=== PATIENT | male | born 1995 ===

== ENCOUNTER 2017-12-28 18:07 | Emergency (ER) | payer MEDICAID ==
[2017-12-28 18:08] VITALS: BMI 22.7
[2017-12-28 18:15] VITALS: TEMP 97.9
[2017-12-28] MEDS ORDERED: Sodium Chloride 0.9% 1,000 ML IV STA (18:48)
[2017-12-28] MEDS ORDERED: DiphenhydrAMINE 50 mg/ml Inj IVP STA (18:48)
[2017-12-28] MEDS ORDERED: DiphenhydrAMINE 50 mg/ml Inj ONE (19:00)
--- NOTE | 2017-12-28 19:06 | ED PDOC ---
HPI: Abdomen Time Seen by Provider: 12/28/17 18:31 Chief Complaint (Nursing): Abdominal Pain Chief Complaint (Provider): Abdominal Pain History Per: Patient History/Exam Limitations: no limitations Onset/Duration Of Symptoms: Hrs (x 8) Current Symptoms Are (Timing): Still Present Location Of Pain/Discomfort: Diffuse Quality Of Discomfort: "Pain" Associated Symptoms: Vomiting, Diarrhea Additional Complaint(s): 22 year old male presents to the ED complaining of vomiting and abdominal pain since 11 this morning upon waking. When he awoke, he was unable to eat and drink. Pain is diffuse. Vomiting is non bloody,non bilious and intractable. He also reports few episodes of non bloody diarrhea. Patient had had similar episodes multiple times in the last three months. He has been seen at [facility] and [facility] Ed multiple times. Patient reports he was seen and treated at [facility] earlier today. Despite instructions, patient has not followed up with clinic or community aide. PMD: none provided Past Medical History Reviewed: Historical Data, Nursing Documentation, Vital Signs Vital Signs: Last Vital Signs Temp 97.9 F 12/28/17 18:12 Pulse 73 12/28/17 21:58 Resp 18 12/28/17 21:58 BP 132/87 12/28/17 21:58 Pulse Ox 98 12/28/17 21:58 - Medical History PMH: Gastritis - Surgical History Surgical History: Appendectomy - Family History Family History: States: Unknown Family Hx - Social History Current smoker - smoking cessation education provided: Yes (Heavy Smoker > 10 a day ) Drugs: Cannabis - Immunization History Hx Tetanus Toxoid Vaccination: Yes Hx Influenza Vaccination: No Hx Pneumococcal Vaccination: No - Home Medications Home Medications: Ambulatory Orders Medication Instructions Recorded Ciprofloxacin [Cipro] 1 tab PO BID #14 tab 12/28/17 Dicyclomine [Bentyl] 20 mg PO BID PRN #30 tab 12/28/17 Ketorolac Tromethamine [Toradol] 10 mg PO Q8 PRN #30 tab 12/28/17 Ondansetron ODT [Zofran ODT] 1 odt PO Q6 PRN #20 odt 12/28/17 - Allergies Allergies/Adverse Reactions: Allergies Allergy/AdvReac Type Severity Reaction Status Date / Time SEAFOOD Allergy RASH Uncoded 12/28/17 18:12 Review of Systems ROS Statement: Except As Marked, All Systems Reviewed And Found Negative Gastrointestinal: Positive for: Vomiting, Abdominal Pain Physical Exam - Reviewed Nursing Documentation Reviewed: Yes Vital Signs Reviewed: Yes - Physical Exam Appears: Positive for: Uncomfortable (crying in pain) Head Exam: Positive for: ATRAUMATIC, NORMOCEPHALIC Skin: Positive for: Warm, Dry Eye Exam: Positive for: EOMI, PERRL ENT: Positive for: Other (dry mucus membranes). Negative for: Pharyngeal Erythema, Tonsillar Exudate Neck: Positive for: Painless ROM, Supple Cardiovascular/Chest: Positive for: Regular Rate, Rhythm. Negative for: Murmur Respiratory: Positive for: Normal Breath Sounds. Negative for: Respiratory Distress Gastrointestinal/Abdominal: Positive for: Soft, Tenderness (distractible tenderness to palpation diffusely). Negative for: Mass, Distended, Guarding, Rebound Back: Positive for: Normal Inspection. Negative for: Decreased ROM Extremity: Positive for: Normal ROM. Negative for: Deformity Lymphatic: Negative for: Adenopathy Neurologic/Psych: Positive for: Alert, Mood/Affect (anxious affect). Negative for: Motor/Sensory Deficits - Laboratory Results Result Diagrams: 12/28/17 19:29 12/28/17 19:29 - ECG O2 Sat by Pulse Oximetry: 99 (RA) Pulse Ox Interpretation: Normal Medical Decision Making Medical Decision Making: Time: 18:46 Impression: acute on chronic abdominal pain with history of marijuana use. Differential diagnoses include but are not limited to: gastroenteritis, gastroparesis, adverse reaction to marijuana, dehydration, electrolyte abnormality Initial Plan: --CMP --Urine drug --Lactic acid plasma --Lipase --Magnesium --Phosphorus --Urine dip --CBC with differentials --PTT --Prothrombin time --Benadryl 25 mg IVP --Dextrose IV 100 mls/hr --Normal saline IV 1,000 mls/hr --Phenergan 25 mg IVPB --Reglan 10 mg IV --Toradol 15 mg IVP --CT abdomen/ pelvis Reviewed previous charts- patient was seen and signed out AMA twice after one admission. CT scan in October was unremarkable. 2100 Labs demonstrate leukocytosis, similar to previous visits. Time: 21:33 CT Abdomen/ Pelvis FINDINGS: Limitations: Streak artifact - mild. Lung bases: No acute findings. ABDOMEN: Liver: Fatty infiltration. Gallbladder and bile ducts: No calcified stones. No ductal dilation. Pancreas: No ductal dilation. No mass. Spleen: No splenomegaly. Adrenals: No mass. Kidneys and ureters: No mass. No hydronephrosis. Stomach and bowel: Mild mural thickening vs underdistention of large bowel. No associated inflammatory stranding. No obstruction. PELVIS: Appendix: Appendectomy. Bladder: Unremarkable. Reproductive: Unremarkable as visualized. ABDOMEN and PELVIS: Intraperitoneal space: No significant fluid collection. No free air. Bones/joints: No acute fracture. Soft tissues: Unremarkable. Vasculature: Unremarkable. No aneurysm. Lymph nodes: No pathologically enlarged lymph nodes. IMPRESSION: 1. Mild colitis versus underdistention. Clinical correlation is needed. 2. Incidental/non-acute findings are described above. Discussed with patient findings. Currently requesting Toradol and something "to put me to sleep." Advised that his condition does not require sleep medication, and that substance abuse probably contributing significant to his symptoms. Will be d/c with Cipro, Toradol, Bentyl and Zofran. Return to the ED if symptoms persist or worsen. Emphasized need for follow up. Scribe Attestation: Documented by Neelima Adkins, acting as a scribe for Ibeth Cope MD Provider Scribe Attestation: All medical record entries made by the Scribe were at my direction and personally dictated by me. I have reviewed the chart and agree that the record accurately reflects my personal performance of the history, physical exam, medical decision making, and the department course for this patient. I have also personally directed, reviewed, and agree with the discharge instructions and disposition. Disposition - Clinical Impression Clinical Impression: Gastroenteritis, Colitis, Substance abuse - Patient ED Disposition Is Patient to be Admitted: No Counseled Patient/Family Regarding: Studies Performed, Diagnosis, Need For Followup, Rx Given - Disposition Referrals: [facility] [Outside] - 12/29/17 (START FOLLOWING UP AT CLINIC FOR FURTHER EVALUATION. YOU NEED TO BE SEEN BY A TRAVEL FREIGHT AND PASSENGER AGENT.) Disposition: Routine/Home Disposition Time: 21:45 Condition: IMPROVED Prescriptions: Ciprofloxacin [Cipro] 1 tab PO BID #14 tab Dicyclomine [Bentyl] 20 mg PO BID PRN #30 tab PRN Reason: abdominal pain Ketorolac Tromethamine [Toradol] 10 mg PO Q8 PRN #30 tab PRN Reason: PAIN Ondansetron ODT [Zofran ODT] 1 odt PO Q6 PRN #20 odt PRN Reason: Nausea/Vomiting Instructions: Drug Abuse and Drug Addiction (DC), Gastroenteritis (ED) Forms: [employer] (Bengali)
[2017-12-28 19:18] LABS: OPIATES, UR NEGATIVE (NEGATIVE)
[2017-12-28 19:21] LABS: BARBITURATES, UR NEGATIVE (NEGATIVE); BENZODIAZEPINES, UR NEGATIVE (NEGATIVE); PHENCYCLIDINE, UR NEGATIVE (NEGATIVE)
[2017-12-28 19:35] LABS: BASO % 0.2 % (0.0-2.0); HEMOGLOBIN 15.1 g/dL (12.0-18.0); LYMPH # 1.1 K/uL (1.0-4.3); LYMPH % 5.5 % (20.0-40.0); MEAN CELL VOLUME 93.2 fl (80.0-94.0); MEAN CORPUSCULAR HEMOGLOBIN 31.6 pg (27.0-31.0); MEAN CORPUSCULAR HGB CONC 33.9 g/dL (33.0-37.0); MEAN PLATELET VOLUME 7.8 fl (7.2-11.7); MONO # 0.7 K/uL (0.0-0.8); MONO % 3.7 % (0.0-10.0); NEUT # 17.9 K/uL (1.8-7.0); NEUT % 90.6 % (50.0-75.0); PLATELET COUNT 314 K/uL (130-400); RBC 4.77 Mil/uL (4.40-5.90); RED CELL DISTRIBUTION WIDTH 13.5 % (11.5-14.5); WHITE BLOOD COUNT 19.8 K/uL (4.8-10.8)
[2017-12-28 19:44] LABS: ALB/GLOB RATIO 1.5 (1.0-2.1); ALBUMIN 4.4 g/dL (3.5-5.0); ALT/SGPT 40 U/L (21-72); AST/SGOT 35 U/L (17-59); BLOOD UREA NITROGEN 11 mg/dl (9-20); CALCIUM 9.1 mg/dL (8.4-10.2); GFR AFRICAN-AMERICAN > 60; GFR NON-AFRICAN AMERICAN > 60; LIPASE 34 U/L (23-300)
[2017-12-28 19:49] LABS: INR 1.1 (0.9-1.2); PARTIAL THROMBOPLASTIN TIME 29.4 Seconds (25.6-37.1)
[2017-12-28] MEDS ORDERED: Sodium Chloride 0.9% 100 ML ONE (20:19)
[2017-12-28] MEDS ORDERED: Iohexol 300 100 ML IJ ONE (20:19)
[2017-12-28 20:47] LABS: LYMPHOCYTE 2 % (20-50); MONOCYTE 1 % (0-10); NEUTROPHIL 94 % (42-75); REACTIVE LYMPHOCYTES 3 % (0-0); TOTAL CELLS COUNTED 100
[2017-12-28 20:48] LABS: PLATELET CLUMPS PRESENT; PLATELET ESTIMATE NORMAL (NORMAL)
--- NOTE | 2017-12-28 21:33 | CT ---
EXAM: CT Abdomen and Pelvis With Intravenous Contrast CLINICAL HISTORY: 22 years old, male; Pain and signs and symptoms; Vomiting; Abdominal pain; Generalized; Prior surgery; Surgery date: 6+ months; Surgery type: Appendectomy; Patient HX: Gastritis; Additional info: Abd pain leukocytosis TECHNIQUE: Axial computed tomography images of the abdomen and pelvis with intravenous contrast. All CT scans at this facility use one or more dose reduction techniques, viz.: automated exposure control; ma/kV adjustment per patient size (including targeted exams where dose is matched to indication; i.e. head); or iterative reconstruction technique. Coronal and sagittal reformatted images were created and reviewed. CONTRAST: 90 mL of [id number] administered intravenously. COMPARISON: CT - ABDOMEN^ABD ROUTINE W (ADULT) 2011-04-05 04:27 FINDINGS: Limitations: Streak artifact - mild. Lung bases: No acute findings. ABDOMEN: Liver: Fatty infiltration. Gallbladder and bile ducts: No calcified stones. No ductal dilation. Pancreas: No ductal dilation. No mass. Spleen: No splenomegaly. Adrenals: No mass. Kidneys and ureters: No mass. No hydronephrosis. Stomach and bowel: Mild mural thickening vs underdistention of large bowel. No associated inflammatory stranding. No obstruction. PELVIS: Appendix: Appendectomy. Bladder: Unremarkable. Reproductive: Unremarkable as visualized. ABDOMEN and PELVIS: Intraperitoneal space: No significant fluid collection. No free air. Bones/joints: No acute fracture. Soft tissues: Unremarkable. Vasculature: Unremarkable. No aneurysm. Lymph nodes: No pathologically enlarged lymph nodes. IMPRESSION: 1. Mild colitis versus underdistention. Clinical correlation is needed. 2. Incidental/non-acute findings are described above.
[2017-12-28 21:58] VITALS: BP 132/87; PULSE 73; RESP 18
[2017-12-29 14:25] VITALS: O2SAT 99
== END 2017-12-28 22:11 | disposition home or self-care (01) ==
LOC: H.ER 18:07
DX: K52.9 Noninfective gastroenteritis and colitis, unspecified (principal); K29.70 Gastritis, unspecified, without bleeding; F12.90 Cannabis use, unspecified, uncomplicated; G89.29 Other chronic pain
CPT/HCPCS: 74177; 80053; 80324; 80345; 80346; 80349; 80353; 80358; 80361; 83605; 83690; 83735; 83992; 84100; 85025; 85610; 85730; 96361; 96374; 96375; 99283; J1200; J1885; J2550; J7040; J7042; Q9967

== ENCOUNTER 2017-12-30 02:49 | Observation (INO) | payer MEDICAID ==
[2017-12-30 02:57] VITALS: BMI 23.7
[2017-12-30] MEDS ORDERED: Sodium Chloride 0.9% 1,000 ML IV STA (03:15)
[2017-12-30 03:35] LABS: SQUAMOUS EPITHIAL < 1 /hpf (0-5); URINE BACTERIA RARE (<OCC); URINE BILIRUBIN NEGATIVE (NEGATIVE); URINE BLOOD NEGATIVE (NEGATIVE); URINE CLARITY CLEAR (Clear); URINE COLOR YELLOW (YELLOW); URINE GLUCOSE (UA) NEG (Normal); URINE LEUKOCYTE ESTERASE NEG Leu/uL (Negative); URINE PROTEIN NEGATIVE (NEGATIVE); URINE UROBILINOGEN 0.2-1.0 mg/dL (0.2-1.0)
[2017-12-30 03:40] LABS: BASO # 0.1 K/uL (0.0-0.2); BASO % 0.4 % (0.0-2.0); EOS # 0.1 K/uL (0.0-0.7); EOS % 0.2 % (0.0-4.0); HEMOGLOBIN 15.7 g/dL (12.0-18.0); LYMPH # 2.8 K/uL (1.0-4.3); LYMPH % 12.8 % (20.0-40.0); MEAN CELL VOLUME 92.9 fl (80.0-94.0); MEAN CORPUSCULAR HEMOGLOBIN 31.5 pg (27.0-31.0); MEAN CORPUSCULAR HGB CONC 33.9 g/dL (33.0-37.0); MONO # 1.1 K/uL (0.0-0.8); MONO % 4.9 % (0.0-10.0); NEUT # 17.8 K/uL (1.8-7.0); NEUT % 81.7 % (50.0-75.0); NRBC % 0.1 % (0.0-0.0); RBC 4.99 Mil/uL (4.40-5.90); RED CELL DISTRIBUTION WIDTH 13.5 % (11.5-14.5); WHITE BLOOD COUNT 21.8 K/uL (4.8-10.8)
[2017-12-30 03:54] LABS: ALB/GLOB RATIO 1.5 (1.0-2.1); ALBUMIN 4.4 g/dL (3.5-5.0); ALT/SGPT 41 U/L (21-72); AST/SGOT 34 U/L (17-59); BARBITURATES, UR NEGATIVE (NEGATIVE); BENZODIAZEPINES, UR NEGATIVE (NEGATIVE); BLOOD UREA NITROGEN 17 mg/dl (9-20); CALCIUM 9.3 mg/dL (8.4-10.2); GFR AFRICAN-AMERICAN > 60; GFR NON-AFRICAN AMERICAN > 60; OPIATES, UR NEGATIVE (NEGATIVE); PHENCYCLIDINE, UR NEGATIVE (NEGATIVE)
--- NOTE | 2017-12-30 03:57 | ED PDOC ---
HPI: Abdomen Time Seen by Provider: 12/30/17 03:01 Chief Complaint (Nursing): Abdominal Pain Chief Complaint (Provider): Abdominal Pain History Per: Patient History/Exam Limitations: no limitations Onset/Duration Of Symptoms: Days (x 1) Current Symptoms Are (Timing): Constant Location Of Pain/Discomfort: Diffuse Associated Symptoms: Vomiting (non bloody/bilious) Additional Complaint(s): 22 years old male with history of gastritis, who had multiple visits before to the ED, presents with complaints of a constant diffused abdominal pain associated with non-bloody/bilious vomiting. Patient reports he has been seen at [facility] for same complaints. He admits he has not been following up with a GI doctor. According to reviews, patient has been seen and signed as AMA before. History of labs show leukocytosis. He denies any fever or diarrhea. PMD: Kashmir Hackett Past Medical History Reviewed: Historical Data, Nursing Documentation, Vital Signs Vital Signs: Last Vital Signs Temp 98.3 F 12/30/17 15:47 Pulse 56 L 12/30/17 15:47 Resp 18 12/30/17 15:47 BP 166/79 H 12/30/17 15:47 Pulse Ox 97 12/30/17 15:47 - Medical History PMH: Gastritis - Surgical History Surgical History: Appendectomy - Family History Family History: States: Unknown Family Hx - Social History Current smoker - smoking cessation education provided: Yes Alcohol: Social Drugs: Cannabis - Immunization History Hx Tetanus Toxoid Vaccination: Yes Hx Influenza Vaccination: No Hx Pneumococcal Vaccination: No - Home Medications Home Medications: Ambulatory Orders Medication Instructions Recorded Dicyclomine [Bentyl] 20 mg PO BID PRN #30 tab 12/28/17 Ketorolac Tromethamine [Toradol] 10 mg PO Q8 PRN #30 tab 12/28/17 - Allergies Allergies/Adverse Reactions: Allergies Allergy/AdvReac Type Severity Reaction Status Date / Time SEAFOOD Allergy RASH Uncoded 12/30/17 02:57 Review of Systems ROS Statement: Except As Marked, All Systems Reviewed And Found Negative Constitutional: Negative for: Fever Gastrointestinal: Positive for: Vomiting (non-bloody/bilious), Abdominal Pain ( diffused). Negative for: Diarrhea Physical Exam - Reviewed Nursing Documentation Reviewed: Yes Vital Signs Reviewed: Yes - Physical Exam Appears: Positive for: Non-toxic, No Acute Distress Head Exam: Positive for: ATRAUMATIC, NORMOCEPHALIC Skin: Positive for: Normal Color, Warm, Dry Eye Exam: Positive for: Normal appearance Cardiovascular/Chest: Positive for: Regular Rate, Rhythm. Negative for: Murmur Respiratory: Positive for: Normal Breath Sounds. Negative for: Respiratory Distress Gastrointestinal/Abdominal: Positive for: Normal Exam, Soft. Negative for: Tenderness Neurologic/Psych: Positive for: Alert, Oriented - Laboratory Results Result Diagrams: 12/30/17 03:21 12/30/17 03:21 - ECG O2 Sat by Pulse Oximetry: 99 (RA) Pulse Ox Interpretation: Normal Medical Decision Making Medical Decision Making: Time: 030 Initial Impression: Chronic attractable abdominal pain. Initial Plan: --CMP --Urine Drug Screen --CBC --NaCl 1,000 ml IV --Pepcid 20 mg IVP --Toradol 30 mg IV --Zofran 4 mg PO --Urine C&S --Urinalysis From previous day: 12/28/2017 21:33 CT Abd/Pelvis FINDINGS: Limitations: Streak artifact - mild. Lung bases: No acute findings. ABDOMEN: Liver: Fatty infiltration. Gallbladder and bile ducts: No calcified stones. No ductal dilation. Pancreas: No ductal dilation. No mass. Spleen: No splenomegaly. Adrenals: No mass. Kidneys and ureters: No mass. No hydronephrosis. Stomach and bowel: Mild mural thickening vs underdistention of large bowel. No associated inflammatory stranding. No obstruction. PELVIS: Appendix: Appendectomy. Bladder: Unremarkable. Reproductive: Unremarkable as visualized. ABDOMEN and PELVIS: Intraperitoneal space: No significant fluid collection. No free air. Bones/joints: No acute fracture. Soft tissues: Unremarkable. Vasculature: Unremarkable. No aneurysm. Lymph nodes: No pathologically enlarged lymph nodes. IMPRESSION: 1. Mild colitis versus underdistention. Clinical correlation is needed. 2. Incidental/non-acute findings are described above. Dictated By: Devante De La Torre MD Dictated Date/Time: 12/28/172132 Signed By: Devante De La Torre MD Date Signed: 2132 Transcribed By: BELLA Transcribe Date/Time : 12/28/172132 [id number] pt and mother aware of labs and CT report. pt still has pain. will be admitted for intractable pain to Dr Byrne. pt noted to have elevated wbc, on review of prior records, also had elev wbc. Scribe Attestation: Documented by Nyasia Hartman, acting as a scribe for Bob Weber MD. Provider Scribe Attestation: All medical record entries made by the Scribe were at my direction and personally dictated by me. I have reviewed the chart and agree that the record accurately reflects my personal performance of the history, physical exam, medical decision making, and the department course for this patient. I have also personally directed, reviewed, and agree with the discharge instructions and disposition. Disposition - Clinical Impression Clinical Impression: Abdominal discomfort, Substance abuse - Patient ED Disposition Is Patient to be Admitted: No Counseled Patient/Family Regarding: Studies Performed, Diagnosis - Disposition Disposition Time: 05:00 Condition: STABLE
--- NOTE | 2017-12-30 04:48 | CP.PCM.HP ---
History of Present Illness - History of Present Illness History of Present Illness: PMD: Kashmir Hackett MD Chief complaint: Abdominal pain The patient was seen and evaluated in the ED HPI: 22 years old male with hx of Appendicitis 2014 and multiple ED visits for abdominal pains. He was at the [facility] on 12/28/17 and later the same day was at the [facility] ED, treated discharged. He returned later with the same complaint of worsening Pelvic pain radiating to the Groin, not associated with Diarrhea nor urinary symptoms. No fever, Chills. his wbc on 12/28/17 [id number] and today [id number]. He had an episode of vomiting. 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 absent: Chills, Fever - EENT Eyes: absent: Floaters, Itchy Eyes, Requires Corrective Lenses, Sees Flashes Ears: absent: Decreased Hearing, Ear Discharge, Ear Pain, Tinnitus Nose/Mouth/Throat: absent: Epistaxis, Nasal Congestion, Nasal Discharge, Sinus Pain, Sinus Pressure - Cardiovascular Cardiovascular: Chest Pain. absent: Dyspnea, Edema - Respiratory Respiratory: absent: Cough, Dyspnea, Wheezing, Stridor - Gastrointestinal Gastrointestinal: Abdominal Pain, Vomiting. absent: Nausea - Genitourinary Genitourinary: absent: Dysuria, Flank Pain, Hematuria, Urinary Frequency - Musculoskeletal Musculoskeletal: absent: Arthralgias, Muscle Cramps, Muscle Weakness, Myalgias - Integumentary Integumentary: absent: Pruritus, Rash, Skin Ulcer, Sores, Striae, Swelling - Neurological Neurological: Headaches. absent: Confusion, Dizziness, Focal Weakness, Weakness - Psychiatric Psychiatric: absent: Anxiety, Depression, Panic Attacks - Endocrine Endocrine: absent: Palpitations, Polydipsia, Polyphagia, Polyuria - Hematologic/Lymphatic Hematologic: absent: Easy Bleeding, Easy Bruising Past Patient History - Infectious Disease Hx of Infectious Diseases: None - Past Medical History & Family History Past Medical History?: No - Past Social History Smoking Status: Heavy Smoker > 10 Cigarettes Daily Chewing Tobacco Use: No Cigar Use: No Alcohol: Social Drugs: Cannabis Home Situation {Lives}: With Family - CARDIAC Hx Cardiac Disorders: No - PULMONARY Hx Respiratory Disorders: No - NEUROLOGICAL Hx Neurological Disorder: No - HEENT Hx HEENT Problems: No - RENAL Hx Chronic Kidney Disease: No - ENDOCRINE/METABOLIC Hx Endocrine Disorders: No - HEMATOLOGICAL/ONCOLOGICAL Hx Blood Disorders: No - INTEGUMENTARY Hx Dermatological Problems: No - MUSCULOSKELETAL/RHEUMATOLOGICAL Hx Falls: No - GASTROINTESTINAL Hx Gastritis: Yes - GENITOURINARY/GYNECOLOGICAL Hx Genitourinary Disorders: No - PSYCHIATRIC Hx Substance Use: Yes - SURGICAL HISTORY Hx Appendectomy: Yes - ANESTHESIA Hx Anesthesia: Yes Hx Anesthesia Reactions: No Hx Malignant Hyperthermia: No Meds Allergies/Adverse Reactions: Allergies Allergy/AdvReac Type Severity Reaction Status Date / Time SEAFOOD Allergy RASH Uncoded 12/30/17 02:57 Physical Exam - Constitutional Appears: No Acute Distress - Head Exam Head Exam: ATRAUMATIC, NORMAL INSPECTION, NORMOCEPHALIC - Eye Exam Eye Exam: EOMI, Normal appearance Pupil Exam: NORMAL ACCOMODATION, PERRL - ENT Exam ENT Exam: Mucous Membranes Moist, Normal Exam, Normal External Ear Exam - Neck Exam Neck exam: Positive for: Full Rom, Normal Inspection. Negative for: Lymphadenopathy, Tenderness - Respiratory Exam Respiratory Exam: Clear to Auscultation Bilateral. absent: Rales, Rhonchi, Wheezes - Cardiovascular Exam Cardiovascular Exam: REGULAR RHYTHM, +S1, +S2. absent: RRR - GI/Abdominal Exam GI & Abdominal Exam: Mass, Soft Additional comments: Flat, soft, tender at periumbilical and pelvic region, no rebound tenderness - Rectal Exam Rectal Exam: Deferred - Extremities Exam Extremities exam: Positive for: full ROM, normal inspection. Negative for: calf tenderness, pedal edema - Back Exam Back exam: NORMAL INSPECTION. absent: CVA tenderness (L), CVA tenderness (R) - Neurological Exam Neurological exam: Alert, CN II-XII Intact, Oriented x3, Reflexes Normal - Psychiatric Exam Psychiatric exam: Normal Affect, Normal Mood - Skin Skin Exam: Dry, Normal Color, Warm Results - Vital Signs Recent Vital Signs: Last Vital Signs Temp 97.9 F 12/30/17 02:58 Pulse 61 12/30/17 02:58 Resp 18 12/30/17 02:58 BP 157/82 H 12/30/17 02:58 Pulse Ox 99 12/30/17 04:14 - Labs Result Diagrams: 12/30/17 03:21 12/30/17 03:21 Labs: Laboratory Results - last 24 hr 12/30/17 12/30/17 12/30/17 03:21 03:21 03:21 WBC 21.8 H RBC 4.99 Hgb 15.7 Hct 46.3 MCV 92.9 MCH 31.5 H MCHC 33.9 RDW 13.5 Plt Count 308 MPV 8.0 Neut % (Auto) 81.7 H Lymph % (Auto) 12.8 L Guthrie % (Auto) 4.9 Eos % (Auto) 0.2 Baso % (Auto) 0.4 Neut # (Auto) 17.8 H Lymph # (Auto) 2.8 Guthrie # (Auto) 1.1 H Eos # (Auto) 0.1 Baso # (Auto) 0.1 Sodium 138 Potassium 3.6 Chloride 101 Carbon Dioxide 24 Anion Gap 17 BUN 17 Creatinine 1.0 Est GFR ( Amer) > 60 Est GFR (Non-Af Amer) > 60 Random Glucose 120 H Calcium 9.3 Total Bilirubin 0.4 AST 34 ALT 41 Alkaline Phosphatase 73 Total Protein 7.3 Albumin 4.4 Globulin 3.0 Albumin/Globulin Ratio 1.5 Urine Color Yellow Urine Clarity Clear Urine pH 6.0 Ur Specific [place] 1.020 Urine Protein Negative Urine Glucose (UA) Neg Urine Ketones Trace Urine Blood Negative Urine Nitrate Negative Urine Bilirubin Negative Urine Urobilinogen 0.2-1.0 Ur Leukocyte Esterase Neg Urine RBC (Auto) 2 Urine Microscopic WBC < 1 Ur Squamous Epith Cells < 1 Urine Bacteria Rare Urine Opiates Screen Urine Methadone Screen Ur Barbiturates Screen Ur Phencyclidine Scrn Ur Amphetamines Screen U Benzodiazepines Scrn U Oth Cocaine Metabols U Cannabinoids Screen 12/30/17 03:21 WBC RBC Hgb Hct MCV MCH MCHC RDW Plt Count MPV Neut % (Auto) Lymph % (Auto) G[place]rie % (Auto) Eos % (Auto) Baso % (Auto) Neut # (Auto) Lymph # (Auto) Guthrie # (Auto) Eos # (Auto) Baso # (Auto) Sodium Potassium Chloride Carbon Dioxide Anion Gap BUN Creatinine Est GFR ( Amer) Est GFR (Non-Af Amer) Random Glucose Calcium Total Bilirubin AST ALT Alkaline Phosphatase Total Protein Albumin Globulin Albumin/Globulin Ratio Urine Color Urine Clarity Urine pH Ur Specific [place] Urine Protein Urine Glucose (UA) Urine Ketones Urine Blood Urine Nitrate Urine Bilirubin Urine Urobilinogen Ur Leukocyte Esterase Urine RBC (Auto) Urine Microscopic WBC Ur Squamous Epith Cells Urine Bacteria Urine Opiates Screen Negative Urine Methadone Screen Negative Ur Barbiturates Screen Negative Ur Phencyclidine Scrn Negative Ur Amphetamines Screen Negative U Benzodiazepines Scrn Negative U Oth Cocaine Metabols Negative U Cannabinoids Screen Positive H - Imaging and Cardiology CT scan - abdomen Status: Image reviewed by me Additional comment: 12/28/17 CT Abdomen/ Pelvis FINDINGS: Limitations: Streak artifact - mild. Lung bases: No acute findings. ABDOMEN: Liver: Fatty infiltration. Gallbladder and bile ducts: No calcified stones. No ductal dilation. Pancreas: No ductal dilation. No mass. Spleen: No splenomegaly. Adrenals: No mass. Kidneys and ureters: No mass. No hydronephrosis. Stomach and bowel: Mild mural thickening vs underdistention of large bowel. No associated inflammatory stranding. No obstruction. PELVIS: Appendix: Appendectomy. Bladder: Unremarkable. Reproductive: Unremarkable as visualized. ABDOMEN and PELVIS: Intraperitoneal space: No significant fluid collection. No free air. Bones/joints: No acute fracture. Soft tissues: Unremarkable. Vasculature: Unremarkable. No aneurysm. Lymph nodes: No pathologically enlarged lymph nodes. IMPRESSION: 1. Mild colitis versus underdistention. Clinical correlation is needed. 2. Incidental/non-acute findings are described above. Assessment & Plan - Assessment and Plan (Free Text) Assessment: #. Intractible abdominal pain #. Colitis #. Leukocytosis Plan: 22 years old male with hx of Appendicitis 2014 and multiple ED visits for abdominal pains. He was at the [facility] on 12/28/17 and later the same day was at the [facility] ED, treated discharged. He returned later with the same complaint of worsening Pelvic pain radiating to the Groin, not associated with Diarrhea nor urinary symptoms. No fever, Chills. his wbc on 12/28/17 [id number] and today [id number]. He had an episode of vomiting. #. Intractible abdominal pain most likely due to the Colitis - Pain management #. Colitis - Consult GI Dr Donohue - IV fluids - Blood Culturer - - Stool for C Diff/ C&S - Flagyl - Cipro #. Leukocytosis due to the Colitis - Follow WBC #. DVT prophylaxis with Heparin #. Code Status: Full - Date & Time Date: 12/30/17 Time: 04:47
[2017-12-30] MEDS ORDERED: Morphine 4 MG/ML VIAL ONE (05:04)
[2017-12-30] MEDS: Morphine 4 MG/ML VIAL IVP PRN ×2 (05:04→11:14)
[2017-12-30] MEDS ORDERED: Ciprofloxacin 400mg/200ml D5W 400 MG/200 ML BAG IVPB SCH (05:11)
[2017-12-30] MEDS ORDERED: metroNIDAZOLE 500mg/100ml NS 100 ML IVPB SCH (05:14)
[2017-12-30] MEDS: Sodium Chloride 0.9% 1,000 ML IV SCH ×2 (05:25→15:31)
--- NOTE | 2017-12-30 07:45 | CP.PCM.CON ---
History of Present Illness - History of Present Illness History of Present Illness: PGY5 GI Fellow Consult Note Patient is a 22yo male with no significant past medical history who presents to the ED with diffuse, severe abdominal pain. Patient is very emotionally labile at time of examination, frequently asking for pain medication. He states that for the last 3 months he has had intermittent, severe, 10/10 diffuse abdominal pain. Patient cannot pinpoint onset of pain or what seems to alleviate/ aggravate symptoms. Admits to onset of nausea with bilious emesis 2-3 days prior to admission. On 12/28/17, he went to [facility] for evaluation and was discharged from the ED. The same day he presented to our facility and had CT A/ P with IV contrast showing mild colitis and was sent home. He admits that a physician recently prescribed him antibiotics but he could not tolerate them due to abdominal pain/nausea/vomiting. Currently, he denies any postprandial discomfort, diarrhea, fever, chills, melena, hematochezia, weight loss. 12 system ROS performed and negative except where stated PMHx: Denies PSHx: Appendectomy - 2014 FHx: Grandmother - colon cancer >60yo Social: +Marijuana use; prior UDS + for cocaine, denies tobacco, EtOH use though prior reports suggest use Endo: No prior endoscopic evaluations Past Patient History - Infectious Disease Hx of Infectious Diseases: None - Past Medical History & Family History Past Medical History?: No - Past Social History Smoking Status: Heavy Smoker > 10 Cigarettes Daily Chewing Tobacco Use: No Cigar Use: No Alcohol: Social Drugs: Cannabis Home Situation {Lives}: With Family - CARDIAC Hx Cardiac Disorders: No - PULMONARY Hx Respiratory Disorders: No - NEUROLOGICAL Hx Neurological Disorder: No - HEENT Hx HEENT Problems: No - RENAL Hx Chronic Kidney Disease: No - ENDOCRINE/METABOLIC Hx Endocrine Disorders: No - HEMATOLOGICAL/ONCOLOGICAL Hx Blood Disorders: No - INTEGUMENTARY Hx Dermatological Problems: No - MUSCULOSKELETAL/RHEUMATOLOGICAL Hx Falls: No - GASTROINTESTINAL Hx Gastritis: Yes - GENITOURINARY/GYNECOLOGICAL Hx Genitourinary Disorders: No - PSYCHIATRIC Hx Psychophysiologic Disorder: No - SURGICAL HISTORY Hx Appendectomy: Yes - ANESTHESIA Hx Anesthesia: Yes Hx Anesthesia Reactions: No Hx Malignant Hyperthermia: No Meds Allergies/Adverse Reactions: Allergies Allergy/AdvReac Type Severity Reaction Status Date / Time SEAFOOD Allergy RASH Uncoded 12/30/17 02:57 - Medications Medications: Current Medications Heparin Sodium (Porcine) (Heparin) 5,000 units SC Q8 DARLIN PRN Reason: Protocol Sodium Chloride (Sodium Chloride 0.9%) 1,000 mls @ 150 mls/hr IV .Q6H40M [facility] Stop: 12/31/17 05:02 Last Admin: 12/30/17 05:25 Dose: 150 mls/hr Ciprofloxacin (Cipro 400mg/200ml Dsw) 400 mg in 200 mls @ 200 mls/hr IVPB Q12 DARLIN PRN Reason: Protocol Metronidazole (Flagyl 500mg/100ml Ns) 100 mls @ 100 mls/hr IVPB Q8 DARLIN PRN Reason: Protocol Last Admin: 12/30/17 05:25 Dose: 100 mls/hr Ketorolac Tromethamine (Toradol) 30 mg IVP Q6 PRN PRN Reason: Pain, severe (8-10) Ketorolac Tromethamine (Toradol) 15 mg IVP Q6 PRN PRN Reason: Pain, moderate (4-7) Morphine Sulfate (Morphine) 4 mg IVP Q6 PRN PRN Reason: Pain, severe (8-10) Last Admin: 12/30/17 05:04 Dose: 4 mg Ondansetron HCl (Zofran Odt) 4 mg PO Q8H PRN PRN Reason: Nausea/Vomiting Physical Exam - Constitutional Appears: In Acute Distress (crying, emotional) Additional comments: Patient calm prior to my arrival in the room, then very emotional - Eye Exam Eye Exam: EOMI, PERRL - ENT Exam ENT Exam: Mucous Membranes Moist - Respiratory Exam Respiratory Exam: Clear to Auscultation Bilateral. absent: Rales, Rhonchi, Wheezes - Cardiovascular Exam Cardiovascular Exam: RRR, +S1, +S2 - GI/Abdominal Exam GI & Abdominal Exam: Guarding (diffusely), Hypoactive Bowel Sounds, Soft, Tenderness (diffusely, patient limiting examination). absent: Distended, Firm, Hernia, Rigid - Extremities Exam Extremities exam: Positive for: normal inspection. Negative for: pedal edema - Neurological Exam Neurological exam: Alert, Oriented x3 - Psychiatric Exam Psychiatric exam: Anxious, Depressed - Skin Skin Exam: Dry, Warm Results - Vital Signs Recent Vital Signs: Last Vital Signs Temp 98.2 F 12/30/17 06:54 Pulse 56 L 12/30/17 06:54 Resp 18 12/30/17 06:54 BP 126/72 12/30/17 06:54 Pulse Ox 99 12/30/17 06:54 - Labs Result Diagrams: 12/30/17 03:21 12/30/17 03:21 Labs: Laboratory Results - last 24 hr 12/30/17 12/30/17 12/30/17 03:21 03:21 03:21 WBC 21.8 H RBC 4.99 Hgb 15.7 Hct 46.3 MCV 92.9 MCH 31.5 H MCHC 33.9 RDW 13.5 Plt Count 308 MPV 8.0 Neut % (Auto) 81.7 H Lymph % (Auto) 12.8 L [place] % (Auto) 4.9 Eos % (Auto) 0.2 Baso % (Auto) 0.4 Neut # (Auto) 17.8 H Lymph # (Auto) 2.8 [place] # (Auto) 1.1 H Eos # (Auto) 0.1 Baso # (Auto) 0.1 Sodium 138 Potassium 3.6 Chloride 101 Carbon Dioxide 24 Anion Gap 17 BUN 17 Creatinine 1.0 Est GFR ( Amer) > 60 Est GFR (Non-Af Amer) > 60 Random Glucose 120 H Calcium 9.3 Total Bilirubin 0.4 AST 34 ALT 41 Alkaline Phosphatase 73 Total Protein 7.3 Albumin 4.4 Globulin 3.0 Albumin/Globulin Ratio 1.5 Urine Color Yellow Urine Clarity Clear Urine pH 6.0 Ur Specific [place] 1.020 Urine Protein Negative Urine Glucose (UA) Neg Urine Ketones Trace Urine Blood Negative Urine Nitrate Negative Urine Bilirubin Negative Urine Urobilinogen 0.2-1.0 Ur Leukocyte Esterase Neg Urine RBC (Auto) 2 Urine Microscopic WBC < 1 Ur Squamous Epith Cells < 1 Urine Bacteria Rare Urine Opiates Screen Urine Methadone Screen Ur Barbiturates Screen Ur Phencyclidine Scrn Ur Amphetamines Screen U Benzodiazepines Scrn U Oth Cocaine Metabols U Cannabinoids Screen 12/30/17 03:21 WBC RBC Hgb Hct MCV MCH MCHC RDW Plt Count MPV Neut % (Auto) Lymph % (Auto) [place] % (Auto) Eos % (Auto) Baso % (Auto) Neut # (Auto) Lymph # (Auto) [place] # (Auto) Eos # (Auto) Baso # (Auto) Sodium Potassium Chloride Carbon Dioxide Anion Gap BUN Creatinine Est GFR ( Amer) Est GFR (Non-Af Amer) Random Glucose Calcium Total Bilirubin AST ALT Alkaline Phosphatase Total Protein Albumin Globulin Albumin/Globulin Ratio Urine Color Urine Clarity Urine pH Ur Specific [place] Urine Protein Urine Glucose (UA) Urine Ketones Urine Blood Urine Nitrate Urine Bilirubin Urine Urobilinogen Ur Leukocyte Esterase Urine RBC (Auto) Urine Microscopic WBC Ur Squamous Epith Cells Urine Bacteria Urine Opiates Screen Negative Urine Methadone Screen Negative Ur Barbiturates Screen Negative Ur Phencyclidine Scrn Negative Ur Amphetamines Screen Negative U Benzodiazepines Scrn Negative U Oth Cocaine Metabols Negative U Cannabinoids Screen Positive H Assessment & Plan - Assessment and Plan (Free Text) Assessment: Patient is a 22yo male with no significant past medical history who presents to the ED with diffuse, severe abdominal pain -Abdominal pain -Mild colitis Plan: -Encourage cessation of marijuana - consider cannaboid hyperemesis syndrome -Mesenteric ischemia unlikely in otherwise healthy 22yo male - however given cocaine use, possibility of vasospasm - lactic acid WNL, consider repeating -If symptoms worsen/remain unchanged - perform CT with PO/IV contrast to re- evaluate -IVF as ordered -Antibiotic coverage for mild colitis -Will benefit from outpatient EGD/Colonoscopy -Analgesia/antiemetics per primary service -Diet as tolerated - Date & Time Date: 12/30/17 Time: 07:30
[2017-12-30 15:47] VITALS: BP 166/79; PULSE 56; RESP 18; TEMP 98.3
[2017-12-31 14:40] VITALS: O2SAT 99
== END 2017-12-30 15:45 | disposition home or self-care (01) ==
LOC: H.ER 02:49 → H.ERHOLD 04:01 → H.MEDSURG1 06:42
PROVIDERS: ADMIT Internal Medicine; ATTEND Internal Medicine
DX: K52.9 Noninfective gastroenteritis and colitis, unspecified (principal); D72.828 Other elevated white blood cell count; F12.90 Cannabis use, unspecified, uncomplicated; F17.200 Nicotine dependence, unspecified, uncomplicated; Z91.013 Allergy to seafood; Z80.0 Family history of malignant neoplasm of digestive organs; Z90.49 Acquired absence of other specified parts of digestive tract
CPT/HCPCS: 80053; 81003; 85025; 87040; 87086; 96365; 96372; 96375; 96376; 99284; G0378; G0480; J0744; J1644; J1885; J2270; J7040

== ENCOUNTER 2017-12-31 08:32 | Observation (INO) | payer MEDICAID ==
[2017-12-31 08:35] VITALS: BMI 24.3
[2017-12-31] MEDS ORDERED: Sodium Chloride 0.9% 1,000 ML IV STA (08:44)
[2017-12-31] MEDS ORDERED: Morphine 4 MG/ML VIAL IVP ONE ×2 (08:44→10:25)
--- NOTE | 2017-12-31 08:52 | ED PDOC ---
HPI: Abdomen Time Seen by Provider: 12/31/17 08:39 Chief Complaint (Nursing): Abdominal Pain History Per: Patient Onset/Duration Of Symptoms: Days (1) Current Symptoms Are (Timing): Still Present Severity: Moderate Location Of Pain/Discomfort: LLQ Quality Of Discomfort: Sharp Associated Symptoms: Nausea, Vomiting Exacerbating Factors: None Additional Complaint(s): LLQ abd pain assoc with nausea and vomiting since this AM. Denies fever. Recently discharged from hospital for similar episode. W/u revealed colitis. Discharged with antibiotics but unable to tolerate due to vomiting Past Medical History Vital Signs: Last Vital Signs Temp 98.4 F 12/31/17 08:34 Pulse 105 H 12/31/17 08:34 Resp 17 12/31/17 08:34 BP 171/88 H 12/31/17 08:34 Pulse Ox 99 12/31/17 10:30 - Medical History PMH: Gastritis Denies: Chronic Kidney Disease Other PMH: colitis - Surgical History Surgical History: Appendectomy - Family History Family History: States: Unknown Family Hx - Immunization History Hx Tetanus Toxoid Vaccination: Yes Hx Influenza Vaccination: No Hx Pneumococcal Vaccination: No - Home Medications Home Medications: Ambulatory Orders Medication Instructions Recorded Ciprofloxacin [Cipro] 1 tab PO BID #14 tab 12/28/17 Dicyclomine [Bentyl] 20 mg PO BID PRN #30 tab 12/28/17 Ketorolac Tromethamine [Toradol] 10 mg PO Q8 PRN #30 tab 12/28/17 Ondansetron ODT [Zofran ODT] 1 odt PO Q6 PRN #20 odt 12/28/17 - Allergies Allergies/Adverse Reactions: Allergies Allergy/AdvReac Type Severity Reaction Status Date / Time SEAFOOD Allergy RASH Uncoded 12/30/17 02:57 Review of Systems Constitutional: Negative for: Fever Gastrointestinal: Positive for: Nausea, Vomiting, Abdominal Pain. Negative for : Diarrhea, Hematochezia, Hematemesis Genitourinary Male: Negative for: Dysuria, Frequency Physical Exam - Physical Exam Appears: Positive for: Uncomfortable Skin: Positive for: Normal Color, Warm, DRY Cardiovascular/Chest: Positive for: Regular Rate, Rhythm Respiratory: Positive for: CNT, Normal Breath Sounds Gastrointestinal/Abdominal: Positive for: Bowel Sounds, Soft, Tenderness (LLQ) Back: Negative for: L CVA Tenderness, R CVA Tenderness Extremity: Positive for: Normal ROM Neurologic/Psych: Positive for: Alert, Oriented. Negative for: Motor/Sensory Deficits - Laboratory Results Result Diagrams: 12/31/17 09:07 12/31/17 09:07 - ECG O2 Sat by Pulse Oximetry: 99 - Progress Re-evaluation Time: 10:30 Condition: Re-examined (Still c/o abd pain and nausea. Will remedicate with morphine 2 mg IV) Medical Decision Making Medical Decision Making: Time: 10:18 CT Abd/Pelvis without IV Contrast FINDINGS: LOWER THORAX: Unremarkable, once again. LIVER: Unremarkable. No gross lesion or ductal dilatation. GALLBLADDER AND BILE DUCTS: Unremarkable. PANCREAS: Unremarkable. No gross lesion or ductal dilatation. SPLEEN: Unremarkable. ADRENALS: Unremarkable. No mass. KIDNEYS AND URETERS: Unremarkable. No hydronephrosis. No solid mass. VASCULATURE: Unremarkable. No aortic aneurysm. BOWEL: Unremarkable. No obstruction. No gross mural thickening. APPENDIX: Prior appendectomy reiterated. PERITONEUM: Unremarkable. No free fluid. No free air. LYMPH NODES: Unremarkable. No enlarged lymph nodes. BLADDER: Unremarkable. REPRODUCTIVE: Unremarkable. BONES: No acute fracture. OTHER FINDINGS: None. IMPRESSION: Prior appendectomy reiterated. No definite interval acute abdominal pelvic CT findings. Lack of contrast agents limits interpretation outside of the urolithiasis indication. No obstructive uropathy, radiodense urolithiasis or perinephric reaction bilaterally. Discussed case with Hospitalist at 10:27. Disposition - Clinical Impression Clinical Impression: Abdominal pain, Leukocytosis - Patient ED Disposition Is Patient to be Admitted: Yes - Disposition Disposition Time: 10:31 Condition: FAIR Forms: [employer] (Korean) - Pt Status Changed To: Hospital Disposition Of: Observation - POA Present On Arrival: None
[2017-12-31] MEDS ORDERED: Morphine 4 MG/ML VIAL ONE ×2 (08:53→10:32)
[2017-12-31 09:11] LABS: BASO # 0.1 K/uL (0.0-0.2); BASO % 0.7 % (0.0-2.0); EOS # 0.3 K/uL (0.0-0.7); EOS % 1.6 % (0.0-4.0); HEMOGLOBIN 15.6 g/dL (12.0-18.0); LYMPH # 5.1 K/uL (1.0-4.3); LYMPH % 30.6 % (20.0-40.0); MEAN CELL VOLUME 92.6 fl (80.0-94.0); MEAN CORPUSCULAR HEMOGLOBIN 31.5 pg (27.0-31.0); MEAN CORPUSCULAR HGB CONC 34.1 g/dL (33.0-37.0); MEAN PLATELET VOLUME 7.7 fl (7.2-11.7); MONO # 1.3 K/uL (0.0-0.8); MONO % 7.7 % (0.0-10.0); NEUT % 59.4 % (50.0-75.0); NRBC % 0.1 % (0.0-0.0); RBC 4.96 Mil/uL (4.40-5.90); RED CELL DISTRIBUTION WIDTH 13.7 % (11.5-14.5); WHITE BLOOD COUNT 16.8 K/uL (4.8-10.8)
[2017-12-31 09:22] LABS: ALB/GLOB RATIO 1.4 (1.0-2.1); ALBUMIN 3.8 g/dL (3.5-5.0); ALT/SGPT 37 U/L (21-72); AST/SGOT 38 U/L (17-59); BLOOD UREA NITROGEN 17 mg/dl (9-20); CALCIUM 8.7 mg/dL (8.4-10.2); GFR AFRICAN-AMERICAN > 60; GFR NON-AFRICAN AMERICAN > 60; LIPASE 207 U/L (23-300)
--- NOTE | 2017-12-31 10:20 | CT ---
PROCEDURE: CT Abdomen and Pelvis without intravenous contrast HISTORY: r/o kidney stone COMPARISON: Contrast abdomen pelvis CT examination 12/28/2017. TECHNIQUE: Helical CT of the abdomen and pelvis was performed without oral or intravenous contrast as per referring physician request. Contrast Dose: None Radiation dose: Total exam DLP = 430.46 mGy-cm. This CT exam was performed using one or more of the following dose reduction techniques: Automated exposure control, adjustment of the mA and/or kV according to patient size, and/or use of iterative reconstruction technique. FINDINGS: LOWER THORAX: Unremarkable, once again. LIVER: Unremarkable. No gross lesion or ductal dilatation. GALLBLADDER AND BILE DUCTS: Unremarkable. PANCREAS: Unremarkable. No gross lesion or ductal dilatation. SPLEEN: Unremarkable. ADRENALS: Unremarkable. No mass. KIDNEYS AND URETERS: Unremarkable. No hydronephrosis. No solid mass. VASCULATURE: Unremarkable. No aortic aneurysm. BOWEL: Unremarkable. No obstruction. No gross mural thickening. APPENDIX: Prior appendectomy reiterated. PERITONEUM: Unremarkable. No free fluid. No free air. LYMPH NODES: Unremarkable. No enlarged lymph nodes. BLADDER: Unremarkable. REPRODUCTIVE: Unremarkable. BONES: No acute fracture. OTHER FINDINGS: None. IMPRESSION: Prior appendectomy reiterated. No definite interval acute abdominal pelvic CT findings. Lack of contrast agents limits interpretation outside of the urolithiasis indication. No obstructive uropathy, radiodense urolithiasis or perinephric reaction bilaterally.
[2017-12-31] MEDS ORDERED: Morphine 4 MG/ML VIAL IVP PRN (10:36)
[2017-12-31] MEDS ORDERED: metroNIDAZOLE 500mg/100ml NS 100 ML IVPB SCH (11:00)
[2017-12-31] MEDS ORDERED: Ciprofloxacin 200mg/100ml D5W 100 ML IVPB SCH (11:00)
--- NOTE | 2017-12-31 11:22 | CP.PCM.HP ---
History of Present Illness - History of Present Illness History of Present Illness: CC: Abdominal pain This is a 22 year old male with a past medical history of appendicitis and multiple ED visits for abdominal pains. He was recently admitted to our service yesterday morning, however he left against medical advice- at that time he was given antibiotics for colitis. He is coming back again today due to worsening LLQ abdominal pain, nausea, nonbilious nonbloody emesis since this morning. Denies any diarrhea or fever. In the ED, he was found to have leukocytosis of 16.8. He was given an antiemetic and pain medicaion but is still complaining of severe abdominal pain. He is being placed on med/surg observation for further workup and management of his abdominal pain. Patient denies chest pain, shortness of breath, fevers, chills, diarrhea, headache. All of the patient's questions were answered at the bedside. Present on Admission - Present on Admission Any Indicators Present on Admission: No History of DVT/PE: No History of Uncontrolled Diabetes: No Review of Systems - Review of Systems Review of Systems: A 12 point review of systems was conducted and found to be negative other than what was mentioned in the HPI. Past Patient History - Infectious Disease Hx of Infectious Diseases: None - Past Medical History & Family History Past Medical History?: No - Past Social History Smoking Status: Heavy Smoker > 10 Cigarettes Daily Alcohol: Social Drugs: Cannabis - CARDIAC Hx Cardiac Disorders: No - PULMONARY Hx Respiratory Disorders: No - NEUROLOGICAL Hx Neurological Disorder: No - HEENT Hx HEENT Problems: No - RENAL Hx Chronic Kidney Disease: No - ENDOCRINE/METABOLIC Hx Endocrine Disorders: No - HEMATOLOGICAL/ONCOLOGICAL Hx Blood Disorders: No - INTEGUMENTARY Hx Dermatological Problems: No - MUSCULOSKELETAL/RHEUMATOLOGICAL Hx Falls: No - GASTROINTESTINAL Hx Gastritis: Yes - GENITOURINARY/GYNECOLOGICAL Hx Genitourinary Disorders: No - PSYCHIATRIC Hx Psychophysiologic Disorder: No Hx Substance Use: Yes - SURGICAL HISTORY Hx Appendectomy: Yes - ANESTHESIA Hx Anesthesia: Yes Hx Anesthesia Reactions: No Hx Malignant Hyperthermia: No Meds Allergies/Adverse Reactions: Allergies Allergy/AdvReac Type Severity Reaction Status Date / Time SEAFOOD Allergy RASH Uncoded 12/30/17 02:57 Physical Exam - Additional Findings Additional findings: Physical exam: Constitutional- cooperative, awake, alert Head- NCAT, PERRL Eye- PERRL, EOMI ENT- normal exam, MMM. Neck- normal inspection, supple, no JVD Respiratory- CTAB, no wheezes rales rhonchi Cardiovascular- RRR, +S1, +S2 no MRG GI/Abdominal- epigastric and lllq tenderness to palpation soft, no mass, no hsm Skin- warm, dry Extremities Exam- normal capillary refill, normal inspection Neurological Exam- alert, awake, oriented Psych- normal mood, normal affect Results - Vital Signs Recent Vital Signs: Last Vital Signs Temp 98.1 F 12/31/17 10:46 Pulse 86 12/31/17 10:46 Resp 16 12/31/17 10:46 BP 143/76 12/31/17 10:46 Pulse Ox 97 12/31/17 10:46 - Labs Result Diagrams: 12/31/17 09:07 12/31/17 09:07 Labs: Laboratory Results - last 24 hr 12/31/17 12/31/17 09:07 09:07 WBC 16.8 H RBC 4.96 Hgb 15.6 Hct 45.9 MCV 92.6 MCH 31.5 H MCHC 34.1 RDW 13.7 Plt Count 323 MPV 7.7 Neut % (Auto) 59.4 Lymph % (Auto) 30.6 [place] % (Auto) 7.7 Eos % (Auto) 1.6 Baso % (Auto) 0.7 Neut # (Auto) 10.0 H Lymph # (Auto) 5.1 H [place] # (Auto) 1.3 H Eos # (Auto) 0.3 Baso # (Auto) 0.1 Sodium 140 Potassium 3.6 Chloride 104 Carbon Dioxide 23 Anion Gap 17 BUN 17 Creatinine 0.9 Est GFR ( Amer) > 60 Est GFR (Non-Af Amer) > 60 Random Glucose 113 H Calcium 8.7 Total Bilirubin 0.4 AST 38 ALT 37 Alkaline Phosphatase 60 Total Protein 6.7 Albumin 3.8 Globulin 2.8 Albumin/Globulin Ratio 1.4 Lipase 207 Assessment & Plan - Assessment and Plan (Free Text) Plan: Assessment: #. Intractible abdominal pain #. Colitis #. Leukocytosis Plan: This is a 22 year old male with a past medical history of appendicitis and multiple ED visits for abdominal pains. He was recently admitted to our service yesterday morning, however he left against medical advice- at that time he was given antibiotics for colitis. He is coming back again today due to worsening LLQ abdominal pain, nausea, nonbilious nonbloody emesis since this morning. Denies any diarrhea or fever. In the ED, he was found to have leukocytosis of 16.8. He was given an antiemetic and pain medicaion but is still complaining of severe abdominal pain. He is being placed on med/surg observation for further workup and management of his abdominal pain #. Intractible abdominal pain most likely due to the Colitis, also consider cannabinoid hyperemesis syndrome - Pain management with morphine - Bentyl QID #. Colitis - Consult GI Dr Donohue - NPO status for now - Endoscopy today - IV fluids - f/u blood cultures - Flagyl - Cipro #. Leukocytosis due to the Colitis - 21.9->16.8 - improved from yesterday - continue anitibotics #. DVT prophylaxis- unneeded, patient is ambulatory #. Code Status: Full
--- NOTE | 2017-12-31 11:50 | CP.PCM.CON ---
History of Present Illness - History of Present Illness History of Present Illness: PGY5 GI Fellow Consult Note Patient is a 22yo male with no significant past medical history who presents to the ED with diffuse, severe abdominal pain. The patient was seen yesterday in the hospital but left AMA yesterday afternoon. He returns today with the same complaints of diffuse intermittent abdominal pain. Pain has been ongoing for several months without improvement. He cannot identify any alleviateing/ aggrivating factors. He was admitted yesterday but signed out AMA. Was sent home with antibiotics but could not tolerate any PO and thus returned to the ED. At present, he continues to complain of nausea but has not vomited. Denies any diarrhea, constipation, postprandial pain, fever, chills, melena, hematochezia, weight loss. 12 system ROS performed and negative except where stated PMHx: Denies PSHx: Appendectomy - 2014 FHx: Grandmother - colon cancer >60yo Social: +Marijuana use; prior UDS + for cocaine, denies tobacco, EtOH use though prior reports suggest use Endo: No prior endoscopic evaluations Past Patient History - Infectious Disease Hx of Infectious Diseases: None - Past Medical History & Family History Past Medical History?: No - Past Social History Smoking Status: Heavy Smoker > 10 Cigarettes Daily Alcohol: Social Drugs: Cannabis - CARDIAC Hx Cardiac Disorders: No - PULMONARY Hx Respiratory Disorders: No - NEUROLOGICAL Hx Neurological Disorder: No - HEENT Hx HEENT Problems: No - RENAL Hx Chronic Kidney Disease: No - ENDOCRINE/METABOLIC Hx Endocrine Disorders: No - HEMATOLOGICAL/ONCOLOGICAL Hx Blood Disorders: No - INTEGUMENTARY Hx Dermatological Problems: No - MUSCULOSKELETAL/RHEUMATOLOGICAL Hx Falls: No - GASTROINTESTINAL Hx Gastritis: Yes - GENITOURINARY/GYNECOLOGICAL Hx Genitourinary Disorders: No - PSYCHIATRIC Hx Psychophysiologic Disorder: No Hx Substance Use: Yes - SURGICAL HISTORY Hx Appendectomy: Yes - ANESTHESIA Hx Anesthesia: Yes Hx Anesthesia Reactions: No Hx Malignant Hyperthermia: No Meds Allergies/Adverse Reactions: Allergies Allergy/AdvReac Type Severity Reaction Status Date / Time SEAFOOD Allergy RASH Uncoded 12/30/17 02:57 - Medications Medications: Current Medications Dicyclomine HCl (Bentyl) 20 mg PO QID DARLIN Sodium Chloride (Sodium Chloride 0.9%) 1,000 mls @ 100 mls/hr IV .Q10H STA Stop: 12/31/17 18:43 Last Admin: 12/31/17 09:03 Dose: 100 mls/hr Ciprofloxacin (Cipro 200mg/100ml D5w) 100 mls @ 100 mls/hr IVPB Q12 DARLIN PRN Reason: Protocol Metronidazole (Flagyl 500mg/100ml Ns) 100 mls @ 100 mls/hr IVPB Q12 DARLIN PRN Reason: Protocol Morphine Sulfate (Morphine) 2 mg IVP Q4 PRN PRN Reason: Pain, severe (8-10) Ondansetron HCl (Zofran Inj) 4 mg IVP Q6 PRN PRN Reason: Nausea/Vomiting Physical Exam - Constitutional Appears: Non-toxic, No Acute Distress - Eye Exam Eye Exam: EOMI, PERRL - ENT Exam ENT Exam: Mucous Membranes Moist - Respiratory Exam Respiratory Exam: Clear to Auscultation Bilateral. absent: Rales, Rhonchi, Wheezes - Cardiovascular Exam Cardiovascular Exam: RRR, +S1, +S2 - GI/Abdominal Exam GI & Abdominal Exam: Normal Bowel Sounds, Soft. absent: Distended, Firm, Guarding, Organomegaly, Rigid, Tenderness - Extremities Exam Extremities exam: Positive for: normal inspection. Negative for: pedal edema - Neurological Exam Neurological exam: Alert, Oriented x3 - Psychiatric Exam Psychiatric exam: Normal Affect, Normal Mood - Skin Skin Exam: Dry, Warm Results - Vital Signs Recent Vital Signs: Last Vital Signs Temp 98.1 F 12/31/17 11:19 Pulse 86 12/31/17 11:19 Resp 16 12/31/17 11:19 BP 143/76 12/31/17 11:19 Pulse Ox 97 12/31/17 10:46 - Labs Result Diagrams: 12/31/17 09:07 12/31/17 09:07 Labs: Laboratory Results - last 24 hr 12/31/17 12/31/17 09:07 09:07 WBC 16.8 H RBC 4.96 Hgb 15.6 Hct 45.9 MCV 92.6 MCH 31.5 H MCHC 34.1 RDW 13.7 Plt Count 323 MPV 7.7 Neut % (Auto) 59.4 Lymph % (Auto) 30.6 [place] % (Auto) 7.7 Eos % (Auto) 1.6 Baso % (Auto) 0.7 Neut # (Auto) 10.0 H Lymph # (Auto) 5.1 H [place] # (Auto) 1.3 H Eos # (Auto) 0.3 Baso # (Auto) 0.1 Sodium 140 Potassium 3.6 Chloride 104 Carbon Dioxide 23 Anion Gap 17 BUN 17 Creatinine 0.9 Est GFR ( Amer) > 60 Est GFR (Non-Af Amer) > 60 Random Glucose 113 H Calcium 8.7 Total Bilirubin 0.4 AST 38 ALT 37 Alkaline Phosphatase 60 Total Protein 6.7 Albumin 3.8 Globulin 2.8 Albumin/Globulin Ratio 1.4 Lipase 207 Assessment & Plan - Assessment and Plan (Free Text) Assessment: Patient is a 22yo male with no significant past medical history who presents to the ED with diffuse, severe abdominal pain -Abdominal pain -Leukocytosis -Marijuana use Plan: -Repeat CT without contrast reveiwed - limited in absence of PO contrast but no obvious acute pathology noted -Persistent leukocytosis noted since 2014 - no other obvious signs of infection -Vitals stable -Encourage cessation of marijuana - consider cannaboid hyperemesis syndrome - again discussed with patient -NPO for now; plan for endoscopy this afternoon -Analgesia/antiemetics per primary service -Plan per findings - Date & Time Date: 12/31/17 Time: 11:15
[2017-12-31] MEDS ORDERED: Lactated Ringer's 500 ML IV ONE (13:36)
[2017-12-31] MEDS ORDERED: Propofol 10 mg/ml Inj (20 ML) ONE (13:50)
[2017-12-31] MEDS ORDERED: Lactated Ringer's 500 ML IV SCH (14:00)
[2017-12-31 15:32] VITALS: BP 125/80; PULSE 54; RESP 19; TEMP 98; O2SAT 99
[2018-01-01] MEDS ORDERED: Pantoprazole 40 mg EC Tab PO SCH (07:30)
== END 2017-12-31 18:37 | disposition home or self-care (01) ==
LOC: H.ER 08:32 → H.ERHOLD 10:29 → H.MEDSURG1 11:28
PROVIDERS: ADMIT Internal Medicine; ATTEND Internal Medicine
DX: R10.32 Left lower quadrant pain (principal); F12.90 Cannabis use, unspecified, uncomplicated; Z91.013 Allergy to seafood; K29.60 Other gastritis without bleeding; K31.89 Other diseases of stomach and duodenum; K26.9 Duodenal ulcer, unspecified as acute or chronic, without hemorrhage or perforation; F17.210 Nicotine dependence, cigarettes, uncomplicated; K52.9 Noninfective gastroenteritis and colitis, unspecified
CPT/HCPCS: 43239; 74176; 80053; 83690; 85025; 88305; 96374; 96375; 96376; 99285; G0378; J0744; J2001; J2270; J2405; J2704; J7040; J7120

== ENCOUNTER 2018-01-01 06:50 | Emergency (ER) | payer MEDICAID ==
[2018-01-01 06:50] VITALS: BMI 24.3
[2018-01-01] MEDS ORDERED: Sodium Chloride 0.9% 1,000 ML IV STA (07:03)
[2018-01-01] MEDS ORDERED: Morphine 4 MG/ML VIAL IV STA ×2 (07:18→09:01)
[2018-01-01] MEDS ORDERED: Morphine 4 MG/ML VIAL ONE ×2 (07:27→09:04)
[2018-01-01 08:16] LABS: BASO # 0.1 K/uL (0.0-0.2); BASO % 0.4 % (0.0-2.0); EOS # 0.2 K/uL (0.0-0.7); EOS % 1.3 % (0.0-4.0); LYMPH # 4.8 K/uL (1.0-4.3); LYMPH % 29.4 % (20.0-40.0); MEAN CORPUSCULAR HEMOGLOBIN 31.3 pg (27.0-31.0); MEAN CORPUSCULAR HGB CONC 33.7 g/dL (33.0-37.0); MEAN PLATELET VOLUME 8.3 fl (7.2-11.7); MONO # 1.1 K/uL (0.0-0.8); NEUT % 61.9 % (50.0-75.0); NRBC % 0.2 % (0.0-0.0); RBC 5.11 Mil/uL (4.40-5.90); RED CELL DISTRIBUTION WIDTH 13.3 % (11.5-14.5); WHITE BLOOD COUNT 16.2 K/uL (4.8-10.8)
[2018-01-01 08:31] LABS: URINE BILIRUBIN NEGATIVE (NEGATIVE); URINE BLOOD NEGATIVE (NEGATIVE); URINE CLARITY SLIGHTY-CLOUDY (Clear); URINE COLOR YELLOW (YELLOW); URINE GLUCOSE (UA) NEG (Normal); URINE LEUKOCYTE ESTERASE NEG Leu/uL (Negative); URINE PROTEIN NEGATIVE (NEGATIVE); URINE UROBILINOGEN 0.2-1.0 mg/dL (0.2-1.0)
[2018-01-01 08:41] LABS: PROTHROMBIN TIME 11.1 Seconds (9.8-13.1)
[2018-01-01 08:50] LABS: ALB/GLOB RATIO 1.4 (1.0-2.1); ALT/SGPT 37 U/L (21-72); AST/SGOT 27 U/L (17-59); BLOOD UREA NITROGEN 11 mg/dl (9-20); CALCIUM 8.7 mg/dL (8.4-10.2); GFR AFRICAN-AMERICAN > 60; GFR NON-AFRICAN AMERICAN > 60
[2018-01-01] MEDS ORDERED: EPINEPHrine 1 mg/ml (1:1000) Inj ONE (09:45)
[2018-01-01] MEDS ORDERED: Bupivacaine HCl 0.25% PF (30 ml) Inj ONE (09:45)
--- NOTE | 2018-01-01 09:54 | RAD ---
HISTORY: ro free air COMPARISON: Chest radiograph dated 03/13/2015 FINDINGS: LUNGS: No active pulmonary disease. PLEURA: No significant pleural effusion identified, no pneumothorax apparent. CARDIOVASCULAR: Normal. OSSEOUS STRUCTURES: No significant abnormalities. VISUALIZED UPPER ABDOMEN: Normal. No evidence of free air. OTHER FINDINGS: None. IMPRESSION: No active disease. No evidence of intraperitoneal free air
--- NOTE | 2018-01-01 12:08 | CARD ---
APPROVED REPORT EKG Measurement Heart [id number] <Conclusion> Normal sinus rhythm Rightward axis ST elevation, consider early repolarization, pericarditis, or injury Abnormal ECG
[2018-01-01 13:48] VITALS: RESP 18; O2SAT 99
--- NOTE | 2018-01-01 13:54 | ED PDOC ---
HPI: Abdomen Time Seen by Provider: 01/01/18 07:02 Chief Complaint (Nursing): Abdominal Pain Chief Complaint (Provider): abdominal pain nausea History Per: Patient History/Exam Limitations: other (poor historian) Current Symptoms Are (Timing): Intermittent Episodes Location Of Pain/Discomfort: Other (diffuse) Quality Of Discomfort: Sharp Associated Symptoms: Nausea, Loss Of Appetite Exacerbating Factors: None Alleviating Factors: None Last Bowel Movement: Today Additional Complaint(s): 22yo male recently admitted for abd pain, CT abd pelv x2, had endoscopy yesterday (?left AMA afterwards) showing erosive gastritis, represents c/o abd pain, nausea, denies hematemesis, melena, syncope or fever. Prior records reviewed. Past Medical History Reviewed: Historical Data, Nursing Documentation, Vital Signs Vital Signs: Last Vital Signs Temp 98 F 01/01/18 14:22 Pulse 71 01/01/18 14:22 Resp 18 01/01/18 14:22 BP 136/84 01/01/18 14:22 Pulse Ox 99 01/01/18 14:53 - Medical History PMH: Gastritis Denies: Chronic Kidney Disease - Surgical History Surgical History: Appendectomy - Family History Family History: States: Unknown Family Hx - Immunization History Hx Tetanus Toxoid Vaccination: Yes Hx Influenza Vaccination: No Hx Pneumococcal Vaccination: No - Home Medications Home Medications: Ambulatory Orders Medication Instructions Recorded Aluminum Hydroxide/Magnesium H 30 ml PO Q8H PRN #1 bottle 12/31/17 [Maalox 30 ml] Dicyclomine [Bentyl] 20 mg PO BID PRN #30 tab 12/31/17 Pantoprazole [Protonix EC Tab] 40 mg PO ACB #30 ect 12/31/17 Promethazine [Phenergan] 25 mg PO Q12H PRN #10 tab 12/31/17 Pantoprazole Sodium [Protonix] 40 mg PO QAM #20 ect 01/01/18 Pantoprazole Sodium [Protonix] 40 mg PO DAILY #20 tab 01/06/18 - Allergies Allergies/Adverse Reactions: Allergies Allergy/AdvReac Type Severity Reaction Status Date / Time SEAFOOD Allergy RASH Uncoded 12/30/17 02:57 Review of Systems ROS Statement: Except As Marked, All Systems Reviewed And Found Negative Constitutional: Negative for: Fever, Chills Respiratory: Negative for: Cough Gastrointestinal: Positive for: Nausea, Vomiting, Abdominal Pain. Negative for : Diarrhea, Melena, Hematochezia, Hematemesis Genitourinary Male: Negative for: Dysuria, Hematuria Musculoskeletal: Negative for: Neck Pain, Back Pain Skin: Negative for: Rash, Lesions, Jaundice Neurological: Positive for: Dizziness. Negative for: Weakness, Headache Physical Exam - Reviewed Nursing Documentation Reviewed: Yes Vital Signs Reviewed: Yes - Physical Exam Appears: Positive for: Non-toxic, Uncomfortable Head Exam: Positive for: ATRAUMATIC, NORMAL INSPECTION, NORMOCEPHALIC Skin: Positive for: Normal Color, Warm, DRY Eye Exam: Positive for: EOMI, Normal appearance, PERRL ENT: Positive for: Normal ENT Inspection Neck: Positive for: Normal, Painless ROM Cardiovascular/Chest: Positive for: Regular Rate, Rhythm Respiratory: Positive for: CNT, Normal Breath Sounds Gastrointestinal/Abdominal: Positive for: Soft, Tenderness (mild diffuse tenderness) Back: Positive for: Normal Inspection Extremity: Positive for: Normal ROM Neurologic/Psych: Positive for: Alert, Oriented - Laboratory Results Result Diagrams: 01/01/18 07:15 01/01/18 07:15 - ECG O2 Sat by Pulse Oximetry: 99 Medical Decision Making Medical Decision Making: workup for recurrent abd pain initiated labs obtained CT report, floor notes, and labs and endoscopy report reviewed required analgesics in ED I discussed w GI fellow kai Mcclelland for discharge on protonix Disposition - Clinical Impression Clinical Impression: Erosive gastritis - Patient ED Disposition Is Patient to be Admitted: No Counseled Patient/Family Regarding: Studies Performed, Diagnosis, Need For Followup, Rx Given - Disposition Disposition: Routine/Home Disposition Time: 13:01 Condition: STABLE Additional Instructions: Avoid marijuana or alcohol or NSAIDs and return to ER for any concern. Prescriptions: Pantoprazole Sodium [Protonix] 40 mg PO QAM #20 ect Instructions: Gastritis (DC) Forms: [employer] (Indonesian)
[2018-01-01 14:23] VITALS: BP 136/84; PULSE 71; TEMP 98
== END 2018-01-01 14:22 | disposition home or self-care (01) ==
LOC: H.ER 06:50
DX: K29.60 Other gastritis without bleeding (principal); R42 Dizziness and giddiness
CPT/HCPCS: 71045; 80053; 81003; 82948; 84484; 85025; 85610; 85730; 93005; 96361; 96374; 96375; 96376; 99285; J0171; J1630; J2270; J2405; J7040

== ENCOUNTER 2018-01-06 10:35 | Emergency (ER) | payer MEDICAID ==
[2018-01-06 10:56] VITALS: BMI 23.1
[2018-01-06 10:57] VITALS: BP 144/91; PULSE 75; RESP 16; TEMP 97.6; O2SAT 98
--- NOTE | 2018-01-06 11:54 | ED PDOC ---
HPI: Abdomen Time Seen by Provider: 01/06/18 11:51 Chief Complaint (Nursing): Abdominal Pain History Per: Patient Onset/Duration Of Symptoms: Unknown Outside of [place] travel?: No Severity: Severe Pain Scale Rating Of: 10 Location Of Pain/Discomfort: Other (diffuse abd pain, chronic) Quality Of Discomfort: Unable To Describe Exacerbating Factors: None Alleviating Factors: None Additional History Per: Patient Additional Complaint(s): pt arrived to ED screaming and crying, stating severe abd pain; pt states he has had pain for awhile and needs something for his pain; when asked what were his previous diagnosis for abd pain, pt states "I AM IN PAIN" and loudly banged on the bed striking the exam muller, and began to use profanity against me; pt states + nausea/vomiting; pt denied appetite, pt denied other medical complaints pt is here for further eval pt's without other complaints Past Medical History Reviewed: Historical Data, Nursing Documentation, Vital Signs Vital Signs: Last Vital Signs Temp 97.6 F 01/06/18 10:56 Pulse 75 01/06/18 10:56 Resp 16 01/06/18 10:56 BP 144/91 H 01/06/18 10:56 Pulse Ox 98 01/06/18 12:06 - Medical History PMH: Gastritis Denies: Chronic Kidney Disease - Surgical History Surgical History: Appendectomy - Family History Family History: States: Unknown Family Hx - Immunization History Hx Tetanus Toxoid Vaccination: Yes Hx Influenza Vaccination: No Hx Pneumococcal Vaccination: No - Home Medications Home Medications: Ambulatory Orders Medication Instructions Recorded Aluminum Hydroxide/Magnesium H 30 ml PO Q8H PRN #1 bottle 12/31/17 [Maalox 30 ml] Dicyclomine [Bentyl] 20 mg PO BID PRN #30 tab 12/31/17 Pantoprazole [Protonix EC Tab] 40 mg PO ACB #30 ect 12/31/17 Promethazine [Phenergan] 25 mg PO Q12H PRN #10 tab 12/31/17 Pantoprazole Sodium [Protonix] 40 mg PO QAM #20 ect 01/01/18 - Allergies Allergies/Adverse Reactions: Allergies Allergy/AdvReac Type Severity Reaction Status Date / Time SEAFOOD Allergy RASH Uncoded 12/30/17 02:57 Review of Systems ROS Statement: Except As Marked, All Systems Reviewed And Found Negative Constitutional: Positive for: Weakness Eyes: Negative for: Pain ENT: Negative for: Ear Pain Cardiovascular: Negative for: Chest Pain Respiratory: Negative for: Cough Gastrointestinal: Positive for: Nausea, Vomiting, Abdominal Pain Genitourinary Male: Negative for: Dysuria, Hematuria Musculoskeletal: Negative for: Neck Pain, Back Pain Skin: Negative for: Rash Neurological: Positive for: Weakness Physical Exam - Reviewed Nursing Documentation Reviewed: Yes Vital Signs Reviewed: Yes (elevated BP) - Physical Exam Appears: Positive for: Non-toxic, Uncomfortable (screaming and cursing, banging on the stretcher/striking the side of the exam room's wall; alert/awake, NOT cooperative, resting in bed, uncomfortable, moderate distress due to pain; Pt is cursing/screaming) Head Exam: Positive for: ATRAUMATIC, NORMAL INSPECTION, NORMOCEPHALIC Skin: Positive for: Normal Color (cap refill ~ 1 sec, no ulcerations/petechiae, no rashes), Warm Eye Exam: Positive for: Normal appearance, EOMI, PERRL, Scleral icterus (slight) , Other (no photophobia). Negative for: Nystagmus ENT: Positive for: Normal ENT Inspection, Other (no drooling/stridor, no exudate /lesions) Neck: Positive for: Normal, Painless ROM, Supple, Trachea Midline. Negative for : Decreased ROM Cardiovascular/Chest: Positive for: Regular Rate, Rhythm, Chest Non Tender, Other (+S1, +S2). 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 when asked again, to remain calm and not to scream, pt raised his voice and began to use profanity against me and promptly got up out of his bed and walked to the ED hallway pt states he wants to speak to another doctor/head doctor, to which Dr Pearson came and discussed with him pt continued to raise his voice pt continue to use profanity pt promptly walked out of the ED Re-evaluation Time: 11:50 Condition: Unchanged Medical Decision Making Medical Decision Making: Impression: abd pain, acute on chronic, possible pain med addiction/dependency i have consider all the differential diagnosis regarding pt's chief medical complaints/clinical findings, including but are not limited to: abd pain, acute on chronic, possible pain med addiction/dependency A/P: abd pain, acute on chronic, possible pain med addiction/dependency - labs - iv - ? diagnostics - supportive care - observe/reevaluation Disposition - Clinical Impression Clinical Impression: Intractable abdominal pain - Disposition Disposition: Left W/O Treatment Disposition Time: 11:55 Condition: STABLE Additional Instructions: you are leaving against medical advice potential life-threatening illness remains and pt can lose limb/or worse case, can you are to see your doctor as soon as possible if you change your mind, you are encouraged to return to ED immediately for further care/management Forms: [employer] (Georgian)
== END 2018-01-06 12:00 | disposition left against medical advice (07) ==
LOC: H.ER 10:35
DX: R10.9 Unspecified abdominal pain (principal)

== ENCOUNTER 2018-01-06 13:32 | Emergency (ER) | payer MEDICAID ==
[2018-01-06 13:32] VITALS: BMI 23.1
[2018-01-06 13:40] VITALS: PULSE 78; TEMP 98.4; O2SAT 99
[2018-01-06] MEDS ORDERED: Sodium Chloride 0.9% 1,000 ML IV STA (14:03)
[2018-01-06] MEDS ORDERED: Morphine 4 MG/ML VIAL IV STA (14:03)
[2018-01-06] MEDS ORDERED: Morphine 4 MG/ML VIAL ONE (14:16)
--- NOTE | 2018-01-06 14:52 | RAD ---
HISTORY: r/o free air COMPARISON: Chest radiograph dated 01/01/2018 TECHNIQUE: Chest PA and lateral FINDINGS: LUNGS: No active pulmonary disease. PLEURA: No significant pleural effusion identified. No pneumothorax apparent. CARDIOVASCULAR: Normal. OSSEOUS STRUCTURES: No significant abnormalities. VISUALIZED UPPER ABDOMEN: Normal. No evidence of intraperitoneal air. OTHER FINDINGS: None. IMPRESSION: No active disease.
[2018-01-06 14:53] LABS: BASO # 0.2 K/uL (0.0-0.2); BASO % 1.2 % (0.0-2.0); EOS % 0.1 % (0.0-4.0); HEMOGLOBIN 15.2 g/dL (12.0-18.0); LYMPH # 1.5 K/uL (1.0-4.3); LYMPH % 9.5 % (20.0-40.0); MEAN CELL VOLUME 93.8 fl (80.0-94.0); MEAN CORPUSCULAR HEMOGLOBIN 31.5 pg (27.0-31.0); MEAN CORPUSCULAR HGB CONC 33.6 g/dL (33.0-37.0); MEAN PLATELET VOLUME 7.8 fl (7.2-11.7); MONO # 0.6 K/uL (0.0-0.8); MONO % 4.2 % (0.0-10.0); NEUT # 13.2 K/uL (1.8-7.0); NRBC % 0.1 % (0.0-0.0); PLATELET COUNT 332 K/uL (130-400); RBC 4.81 Mil/uL (4.40-5.90); RED CELL DISTRIBUTION WIDTH 13.6 % (11.5-14.5); WHITE BLOOD COUNT 15.5 K/uL (4.8-10.8)
[2018-01-06 15:06] LABS: ALB/GLOB RATIO 1.5 (1.0-2.1); ALBUMIN 4.4 g/dL (3.5-5.0); ALT/SGPT 40 U/L (21-72); AST/SGOT 26 U/L (17-59); BLOOD UREA NITROGEN 12 mg/dl (9-20); CALCIUM 9.4 mg/dL (8.4-10.2); GFR AFRICAN-AMERICAN > 60; GFR NON-AFRICAN AMERICAN > 60; LIPASE 95 U/L (23-300); PARTIAL THROMBOPLASTIN TIME 26.6 Seconds (25.6-37.1); PROTHROMBIN TIME 10.9 Seconds (9.8-13.1)
[2018-01-06 15:58] LABS: BASOPHIL 1 % (0-2); LYMPHOCYTE 9 % (20-50); MONOCYTE 6 % (0-10); NEUTROPHIL 83 % (42-75); REACTIVE LYMPHOCYTES 1 % (0-0); TOTAL CELLS COUNTED 100
[2018-01-06 15:59] LABS: PLATELET ESTIMATE NORMAL (NORMAL)
[2018-01-06] MEDS ORDERED: Iohexol 300 100 ML IJ ONE (17:11)
[2018-01-06] MEDS ORDERED: Sodium Chloride 0.9% 100 ML ONE (17:11)
--- NOTE | 2018-01-06 17:37 | ED PDOC ---
HPI: Abdomen Time Seen by Provider: 01/06/18 14:02 Chief Complaint (Nursing): Abdominal Pain Chief Complaint (Provider): abdominal pain History Per: Patient History/Exam Limitations: no limitations Current Symptoms Are (Timing): Still Present Severity: Severe Location Of Pain/Discomfort: Epigastric, Suprapubic Quality Of Discomfort: Sharp Associated Symptoms: Nausea, Vomiting, Loss Of Appetite Exacerbating Factors: Food Alleviating Factors: None Last Bowel Movement: Today Additional Complaint(s): 22yo male represents to ED c/o abdominal pain, nausea, severe in nature radiating from epigastrum to lower abdomen. Has been seen several times in ED for same and had endoscopy within the last 3 weeks, showing gastritis and several duodenal ulcers. He is unaware what medication he's taking, poor historian, but states compliance. Past Medical History Reviewed: Historical Data, Nursing Documentation, Vital Signs Vital Signs: Last Vital Signs Temp 98.4 F 01/06/18 13:37 Pulse 78 01/06/18 13:37 Resp 18 01/06/18 13:37 BP Pulse Ox 99 01/06/18 17:45 - Medical History PMH: No Chronic Diseases, Gastritis Denies: Chronic Kidney Disease - Surgical History Surgical History: Appendectomy - Family History Family History: States: Unknown Family Hx - Immunization History Hx Tetanus Toxoid Vaccination: Yes Hx Influenza Vaccination: No Hx Pneumococcal Vaccination: No - Home Medications Home Medications: Ambulatory Orders Medication Instructions Recorded Aluminum Hydroxide/Magnesium H 30 ml PO Q8H PRN #1 bottle 12/31/17 [Maalox 30 ml] Dicyclomine [Bentyl] 20 mg PO BID PRN #30 tab 12/31/17 Pantoprazole [Protonix EC Tab] 40 mg PO ACB #30 ect 12/31/17 Promethazine [Phenergan] 25 mg PO Q12H PRN #10 tab 12/31/17 Pantoprazole Sodium [Protonix] 40 mg PO QAM #20 ect 01/01/18 Pantoprazole Sodium [Protonix] 40 mg PO DAILY #20 tab 01/06/18 - Allergies Allergies/Adverse Reactions: Allergies Allergy/AdvReac Type Severity Reaction Status Date / Time SEAFOOD Allergy RASH Uncoded 12/30/17 02:57 Review of Systems ROS Statement: Except As Marked, All Systems Reviewed And Found Negative Constitutional: Negative for: Fever Cardiovascular: Negative for: Chest Pain Respiratory: Negative for: Cough Gastrointestinal: Positive for: Vomiting, Abdominal Pain Genitourinary Male: Negative for: Dysuria Musculoskeletal: Negative for: Neck Pain Skin: Negative for: Rash, Lesions, Jaundice Neurological: Positive for: Dizziness. Negative for: Weakness Physical Exam - Reviewed Nursing Documentation Reviewed: Yes Vital Signs Reviewed: Yes - Physical Exam Appears: Positive for: Non-toxic, Uncomfortable Head Exam: Positive for: ATRAUMATIC, NORMAL INSPECTION, NORMOCEPHALIC Skin: Positive for: Normal Color, Warm, DRY Eye Exam: Positive for: EOMI, Normal appearance, PERRL ENT: Positive for: Normal ENT Inspection Neck: Positive for: Normal, Painless ROM Cardiovascular/Chest: Positive for: Regular Rate, Rhythm Respiratory: Positive for: CNT, Normal Breath Sounds Gastrointestinal/Abdominal: Positive for: Soft, Tenderness (nonfocal but upper abd >lower abd), Guarding Back: Positive for: Normal Inspection Extremity: Positive for: Normal ROM. Negative for: Tenderness Neurologic/Psych: Positive for: Alert, Oriented. Negative for: Motor/Sensory Deficits - Laboratory Results Result Diagrams: 01/06/18 14:47 01/06/18 14:47 - ECG O2 Sat by Pulse Oximetry: 99 Medical Decision Making Medical Decision Making: prior charts reviewed mother arrived for second visit today (earlier [facility]) and stated she would find what medications patient is currently taking, but then mother left without providing the information. In the past known to abuse cocaine and marijuana. CT abd pelv x2 and endoscopy recently performed. Given degree of discomfort, will workup w labs and re-eval, attempt to avoid further radiation exposure. 4p continued to c/o pain, CXR shows no free air but will obtain CT abd pel r/o perforation given known hx ulcers. Labs reviewed, mild elev WBC but chronically elevated. CT report reviewed no perforation 730p patient improved. UTox reveals THC, he states he hasnt smoked in 2 weeks but prior very heavy THC use. 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 Disposition - Clinical Impression Clinical Impression: Abdominal pain - Patient ED Disposition Is Patient to be Admitted: No - Disposition Referrals: [facility] [Outside] Disposition: Routine/Home Disposition Time: 19:00 Condition: STABLE Additional Instructions: Avoid marijuana use. See gastroenterology for followup and further testing. Avoid spicy or fried foods, and drink plenty of noncarbonated, nonalcoholic beverages. Prescriptions: Pantoprazole Sodium [Protonix] 40 mg PO DAILY #20 tab Instructions: Nausea and Vomiting, Adult (DC), Acute Abdomen (Belly Pain), Adult (DC) Forms: [employer] (Uzbek)
[2018-01-06 18:00] LABS: URINE BILIRUBIN NEGATIVE (NEGATIVE); URINE BLOOD NEGATIVE (NEGATIVE); URINE CLARITY CLEAR (Clear); URINE COLOR YELLOW (YELLOW); URINE GLUCOSE (UA) NEG (Normal); URINE LEUKOCYTE ESTERASE NEG Leu/uL (Negative); URINE PROTEIN 30 mg/dL (NEGATIVE); URINE UROBILINOGEN 0.2-1.0 mg/dL (0.2-1.0)
[2018-01-06 18:11] LABS: BARBITURATES, UR NEGATIVE (NEGATIVE); BENZODIAZEPINES, UR NEGATIVE (NEGATIVE); OPIATES, UR POSITIVE (NEGATIVE); PHENCYCLIDINE, UR NEGATIVE (NEGATIVE)
--- NOTE | 2018-01-06 19:17 | CT ---
EXAM: CT Abdomen and Pelvis With Intravenous Contrast EXAM DATE/TIME: 01/06/2018 4:22 PM CLINICAL HISTORY: 22 years old, male; Pain; Abdominal pain; Generalized; Additional info: Intractable abd pain R/O perforation TECHNIQUE: Axial computed tomography images of the abdomen and pelvis with intravenous contrast. All CT scans at this facility use one or more dose reduction techniques, viz.: automated exposure control; ma/kV adjustment per patient size (including targeted exams where dose is matched to indication; i.e. head); or iterative reconstruction technique. Coronal and sagittal reformatted images were created and reviewed. CONTRAST: 90 mL of administered intravenously. COMPARISON: CT - ABD PELVIS IV CONTRAST ONLY 2017-12-28 20:31 FINDINGS: Lung bases: See below. Heart: Heart size is normal. Lung bases are clear ABDOMEN: Liver: There is fatty infiltration of the liver. Gallbladder and bile ducts: unremarkable Pancreas: unremarkable Spleen: unremarkable Adrenals: unremarkable Kidneys and ureters: unremarkable Stomach and bowel: Stomach is incompletely distended. Rotation is normal. There is no small bowel obstruction. Terminal ileum is unremarkable. Appendix is surgically absent. There are multiple clips at the base of the cecum.Colon is incompletely distended which limits evaluation.There is diverticulosis. PELVIS: Appendix: See stomach and bowel Bladder: unremarkable Reproductive: Seminal vesicles and prostate are unremarkable. ABDOMEN and PELVIS: Intraperitoneal space: There is no free air or free fluid. Bones/joints: There are no acute osseous abnormalities. There is minimal retrolisthesis L5 on S1. There is mild disc bulging. Soft tissues: unremarkable Vasculature: Vascular structures are unremarkable. Lymph nodes: There is no pathologic adenopathy. IMPRESSION: Prior appendectomy; fatty liver, no acute solid visceral abnormality Additional nonemergent findings as described above.
[2018-01-06 20:01] VITALS: BP 117/65; RESP 16
== END 2018-01-06 20:08 | disposition home or self-care (01) ==
LOC: H.ER 13:32
DX: R10.9 Unspecified abdominal pain (principal)
CPT/HCPCS: 71046; 74177; 80053; 80324; 80345; 80346; 80349; 80353; 80358; 80361; 81003; 83690; 83992; 85025; 85610; 85730; 96361; 96374; 96375; 96376; 99283; C9113; J1630; J2270; J2405; J7040; Q9967

== ENCOUNTER 2018-02-10 23:37 | Emergency (ER) | payer MEDICAID ==
[2018-02-10 23:37] VITALS: BMI 23.1
[2018-02-10 23:53] VITALS: BP 130/81; PULSE 90; RESP 16; O2SAT 98
--- NOTE | 2018-02-11 00:06 | ED PDOC ---
HPI: Wound Care - HPI Time Seen by Provider: 02/10/18 23:54 Chief Complaint (Nursing): Abnormal Skin Integrity Chief Complaint (Provider): left thumb pain/laceration History Per: Patient History Of Present Illness: 22 y/o male presents for evaluation of laceration to left thumb after trip and fall prior to arrival. Patient states he tripped on uneven concrete coming out of his building and put left hand out to break his fall and thinks thumb scraped a sharp piece of the floor. Patient reports pain to distal aspect of thumb, states it feels "tight" when bending. Denies numbness/weakness left upper extremity, limitation of movement. Tetanus up to date. Past Medical History Reviewed: Historical Data, Nursing Documentation, Vital Signs Vital Signs: Last Vital Signs Temp 98.0 F 02/10/18 23:50 Pulse 90 02/10/18 23:50 Resp 16 02/10/18 23:50 BP 130/81 02/10/18 23:50 Pulse Ox 98 02/10/18 23:50 - Medical History PMH: Gastritis, Gastrointestinal Ulcer Denies: Chronic Kidney Disease - Surgical History Surgical History: Appendectomy, Endoscopy - Family History Family History: States: Unknown Family Hx - Immunization History Hx Tetanus Toxoid Vaccination: Yes Hx Influenza Vaccination: No Hx Pneumococcal Vaccination: No - Home Medications Home Medications: Ambulatory Orders Medication Instructions Recorded Aluminum Hydroxide/Magnesium H 30 ml PO Q8H PRN #1 bottle 12/31/17 [Maalox 30 ml] Dicyclomine [Bentyl] 20 mg PO BID PRN #30 tab 12/31/17 Pantoprazole [Protonix EC Tab] 40 mg PO ACB #30 ect 12/31/17 Promethazine [Phenergan] 25 mg PO Q12H PRN #10 tab 12/31/17 Pantoprazole Sodium [Protonix] 40 mg PO QAM #20 ect 01/01/18 Pantoprazole Sodium [Protonix] 40 mg PO DAILY #20 tab 01/06/18 - Allergies Allergies/Adverse Reactions: Allergies Allergy/AdvReac Type Severity Reaction Status Date / Time SEAFOOD Allergy RASH Uncoded 02/10/18 23:50 Review of Systems ROS Statement: Except As Marked, All Systems Reviewed And Found Negative Musculoskeletal: Positive for: Hand Pain (left thumb) Physical Exam - Reviewed Nursing Documentation Reviewed: Yes Vital Signs Reviewed: Yes - Physical Exam Appears: Positive for: Well, Non-toxic, No Acute Distress Pulses-Radial (L): 2+ Pulses-Radial (R): 2+ Extremity: Positive for: Normal ROM, Swelling (distal left thumb with swelling, ecchymosis, and tenderness to palpation. superficial "C" shape laceration noted to distal palmar aspect; no active bleeding. Nail intact. Distal NV/ motor intact) Neurologic/Psych: Positive for: Alert, Oriented. Negative for: Motor/Sensory Deficits - ECG O2 Sat by Pulse Oximetry: 98 - Other Rad left thumb xray X-Ray: Viewed By Tn X-Ray Interpretation: no acute findings Procedure: Wound Repair - Time Performed Time Performed: 00:45 - Time Out Time Out: Side verified, Site verified, Patient ID confirmed, Sterile procedures obs. - Consent Obtained Consent obtained: Verbal - Performed by Performed by: Mid-level Provider - Indications Indication(s):: Laceration - Location Finger:: Right, Thumb Shape:: Curvilinear Dimensions Length cm: 1.5cm Dimensions width cm: 0.2cm Depth:: Epidermis - Debris Debris:: None - Irrigated Irrigated with ml of normal saline: 100mL - Wound repair method Leander:: Steri-strips - Muscle repiar layer closed with Muscle repair layer closed with:: Dressing applied, Tetanus up to date - Patient tolerated procedure Patient Tolerated Procedure:: Well Medical Decision Making Medical Decision Making: Patient educated on wound care, advised ice application to affected area. Tylenol PRN pain Follow up PMD 2-3 days. Return precautions given Disposition - Clinical Impression Clinical Impression: Thumb laceration, Thumb contusion - Patient ED Disposition Is Patient to be Admitted: No Counseled Patient/Family Regarding: Studies Performed, Diagnosis, Need For Followup - Disposition Disposition: Routine/Home Disposition Time: 00:53 Condition: STABLE Instructions: Wound Care, Contusion (DC) Forms: [employer] (Indonesian)
[2018-02-11 02:17] VITALS: TEMP 97.9
--- NOTE | 2018-02-11 08:38 | RAD ---
PROCEDURE: Left Thumb radiographs. HISTORY: fall, distal pain/laceration COMPARISON: None. TECHNIQUE: AP radiograph of the left hand, as well as spot oblique and lateral images of thumb were obtained. FINDINGS: LEFT THUMB: Normal left thumb, without fracture or focal lesion. Remainder of the left hand (as seen on the AP view) grossly unremarkable. JOINTS: Normal. SOFT TISSUES: Small soft tissue irregularity thumb distal phalanx plantar aspect -compatible with history. OTHER FINDINGS: None. IMPRESSION: Small soft tissue irregularity thumb distal phalanx plantar aspect -compatible with history. No osseous abnormality
== END 2018-02-11 01:05 | disposition home or self-care (01) ==
LOC: H.ER 23:37
DX: S61.012A Laceration without foreign body of left thumb without damage to nail, initial encounter (principal); S60.012A Contusion of left thumb without damage to nail, initial encounter; W19.XXXA Unspecified fall, initial encounter; Y92.480 Sidewalk as the place of occurrence of the external cause

== ENCOUNTER 2018-07-05 19:46 | Emergency (ER) | payer MEDICAID ==
[2018-07-05 19:47] VITALS: BMI 23.1
[2018-07-05] MEDS ORDERED: Alum-Mag Hydrox-Simethicone Susp (30 mL) PO ONE (20:36)
[2018-07-05] MEDS ORDERED: Sodium Chloride 0.9% 1,000 ML IV STA (20:37)
--- NOTE | 2018-07-05 20:42 | ED PDOC ---
HPI: Abdomen Time Seen by Provider: 07/05/18 20:39 Chief Complaint (Nursing): Abdominal Pain Chief Complaint (Provider): abdominal pain History Per: Patient (22 y/o male here with abdominal pain sudden onset today. Notes pain associated with nausea/vomiting. Notes he ate burger rachel and had beer yesterday. Has h/o gastritis and duodenal ulcers but has stopped taking medications. Has h/o appendectomy. Denies any fevers/chills. Last seen 12/2017 for similar symptoms with CT abd/pelvis at that time wnl.) Past Medical History Reviewed: Historical Data, Nursing Documentation, Vital Signs Vital Signs: Last Vital Signs Temp 98.1 F 07/05/18 20:10 Pulse 62 07/05/18 20:10 Resp 18 07/05/18 20:10 BP 156/72 H 07/05/18 20:10 Pulse Ox 98 07/05/18 20:10 - Medical History PMH: Gastritis, Gastrointestinal Ulcer Denies: Chronic Kidney Disease - Surgical History Surgical History: Appendectomy, Endoscopy - Family History Family History: States: Unknown Family Hx - Immunization History Hx Tetanus Toxoid Vaccination: Yes Hx Influenza Vaccination: No Hx Pneumococcal Vaccination: No - Home Medications Home Medications: Ambulatory Orders Medication Instructions Recorded Aluminum Hydroxide/Magnesium H 30 ml PO Q8H PRN #1 bottle 12/31/17 [Maalox 30 ml] Dicyclomine [Bentyl] 20 mg PO BID PRN #30 tab 12/31/17 Pantoprazole [Protonix EC Tab] 40 mg PO ACB #30 ect 12/31/17 Promethazine [Phenergan] 25 mg PO Q12H PRN #10 tab 12/31/17 Pantoprazole Sodium [Protonix] 40 mg PO QAM #20 ect 01/01/18 Pantoprazole Sodium [Protonix] 40 mg PO DAILY #20 tab 01/06/18 Ondansetron ODT [Zofran ODT] 4 mg PO Q8 PRN #10 odt 07/06/18 Pantoprazole Sodium [Protonix] 40 mg PO DAILY #30 ect 07/06/18 Ranitidine HCl [Zantac 75] 75 mg PO BID PRN #14 tablet 07/06/18 - Allergies Allergies/Adverse Reactions: Allergies Allergy/AdvReac Type Severity Reaction Status Date / Time SEAFOOD Allergy RASH Uncoded 07/05/18 20:09 Review of Systems ROS Statement: Except As Marked, All Systems Reviewed And Found Negative Physical Exam - Reviewed Nursing Documentation Reviewed: Yes Vital Signs Reviewed: Yes - Physical Exam Appears: Positive for: Well, Non-toxic, No Acute Distress Head Exam: Positive for: ATRAUMATIC, NORMAL INSPECTION, NORMOCEPHALIC Skin: Positive for: Normal Color, Warm, DRY Eye Exam: Positive for: EOMI, Normal appearance, PERRL ENT: Positive for: Normal ENT Inspection Neck: Positive for: Normal, Painless ROM Cardiovascular/Chest: Positive for: Regular Rate, Rhythm Respiratory: Positive for: CNT, Normal Breath Sounds Gastrointestinal/Abdominal: Positive for: Normal Exam, Soft, Tenderness (periumbilical) Back: Positive for: Normal Inspection Extremity: Positive for: Normal ROM Neurologic/Psych: Positive for: Alert, Oriented - Laboratory Results Result Diagrams: 07/05/18 21:10 07/05/18 21:50 - ECG O2 Sat by Pulse Oximetry: 98 - Progress ED Course And Treament: pepcid 20 mg iv x 1 dose zofran 4 mg iv x 1 dose maalox 30ml po x 1 dose with lidocaine viscous 2% 5ml po toradol 15 mg iv x 1 dose ns 1 liter wide open obstructive series: moderate stool no free air no signs of obstruction ct abd/pelvis: no acute pathology Medical Decision Making Medical Decision Makin:41 Abdomen/Pelvis CT FINDINGS: LUNG BASES: The lung bases appear clear. No pleural effusions are seen. LIVER: Unremarkable. GALLBLADDER AND BILE DUCTS: The gallbladder appears within normal limits. No radioopaque gallstones are seen. No biliary ductal dilatation is evident. PANCREAS: Unremarkable. SPLEEN: Unremarkable. ADRENAL GLANDS: Unremarkable. KIDNEYS, URETERS, AND BLADDER: The kidneys appear within normal limits. There is no hydronephrosis or hydroureter. No urinary calculi are seen. STOMACH AND BOWEL: Unremarkable appearance of the stomach and bowel. No evidence of bowel obstruction. No evidence suggesting enteritis or colitis. APPENDIX: S/p appendectomy. PERITONEUM: No free fluid. No free air. LYMPH NODES: No lymphadenopathy is evident. REPRODUCTIVE: Unremarkable as visualized. VASCULATURE: No evidence of abdominal aortic aneurysm. BONES: No aggressive appearing osseous lesion. No acute osseous pathology evident. IMPRESSION: S/p appendectomy. No acute pathology. Disposition - Clinical Impression Clinical Impression: Gastritis - Patient ED Disposition Is Patient to be Admitted: No - Disposition Referrals: Kevin Donohue MD, PhD [Staff Provider] - Disposition: Routine/Home Disposition Time: 00:54 Condition: FAIR Prescriptions: Ondansetron ODT [Zofran ODT] 4 mg PO Q8 PRN #10 odt PRN Reason: Nausea/Vomiting Pantoprazole Sodium [Protonix] 40 mg PO DAILY #30 ect Ranitidine HCl [Zantac 75] 75 mg PO BID PRN #14 tablet PRN Reason: Pain, Moderate (4-7) Instructions: Gastritis (DC) Forms: [facility] ED School/Work Excuse
[2018-07-05 21:17] LABS: BASO # 0.1 K/uL (0.0-0.2); BASO % 0.3 % (0.0-2.0); HEMOGLOBIN 14.8 g/dL (12.0-18.0); LYMPH % 6.1 % (20.0-40.0); MEAN CELL VOLUME 94.9 fl (80.0-94.0); MEAN CORPUSCULAR HEMOGLOBIN 30.8 pg (27.0-31.0); MEAN CORPUSCULAR HGB CONC 32.5 g/dL (33.0-37.0); MEAN PLATELET VOLUME 8.8 fl (7.2-11.7); MONO # 0.6 K/uL (0.0-0.8); MONO % 3.4 % (0.0-10.0); NEUT # 14.6 K/uL (1.8-7.0); NEUT % 90.2 % (50.0-75.0); NRBC % 0.1 % (0.0-0.0); PLATELET COUNT 292 K/uL (130-400); RBC 4.81 Mil/uL (4.40-5.90); RED CELL DISTRIBUTION WIDTH 13.9 % (11.5-14.5); WHITE BLOOD COUNT 16.2 K/uL (4.8-10.8)
[2018-07-05] MEDS ORDERED: Iohexol 240 (50 ml) PO ONE (21:21)
[2018-07-05] MEDS ORDERED: Alum-Mag Hydrox-Simethicone Susp (30 mL) ONE (21:31)
[2018-07-05] MEDS ORDERED: Iohexol 240 (50 ml) ONE (21:32)
[2018-07-05 22:09] LABS: ALB/GLOB RATIO 1.6 (1.0-2.1); ALBUMIN 4.4 g/dL (3.5-5.0); ALT/SGPT 32 U/L (21-72); AST/SGOT 29 U/L (17-59); BLOOD UREA NITROGEN 7 mg/dl (9-20); CALCIUM 9.3 mg/dL (8.4-10.2); GFR NON-AFRICAN AMERICAN > 60; LIPASE 92 U/L (23-300)
[2018-07-05 22:12] LABS: ANISOCYTOSIS SLIGHT; BANDS 1 % (0-2); BASOPHIL 1 % (0-2); LYMPHOCYTE 6 % (20-50); MONOCYTE 1 % (0-10); NEUTROPHIL 91 % (42-75); PLATELET ESTIMATE NORMAL (NORMAL); TOTAL CELLS COUNTED 100
[2018-07-05 22:13] LABS: LARGE PLATELETS PRESENT
[2018-07-05] MEDS ORDERED: Magnesium Sulfate 1 gm in D5W 1 GM/100 ML BAG IVPB ONE (22:51)
[2018-07-05] MEDS ORDERED: Magnesium Sulfate 2 gm/50 ml 0 GM/0 ML BAG ONE (23:06)
[2018-07-05] MEDS ORDERED: Iohexol 300 100 ML IJ ONE (23:13)
[2018-07-05] MEDS ORDERED: Sodium Chloride 0.9% 50 ML IV ONE (23:14)
[2018-07-06] MEDS ORDERED: Sucralfate 1 gm/10 ml Oral Susp UD PO STA (01:05)
[2018-07-06] MEDS ORDERED: Sucralfate 1 gm/10 ml Oral Susp UD ONE (01:12)
[2018-07-06 01:44] VITALS: BP 127/64; PULSE 92; RESP 16; TEMP 97.7; O2SAT 99
--- NOTE | 2018-07-06 09:32 | RAD ---
Date of service: 07/05/2018 PROCEDURE: Radiographs of the chest and abdomen (obstructive series) HISTORY: routine COMPARISON: No prior. TECHNIQUE: AP radiograph of the chest, with upright and supine radiographs of the abdomen. FINDINGS: CHEST: Lungs: Clear. Cardiovascular: Normal size heart. No pulmonary vascular congestion. No aortic atherosclerotic calcification present Pleura: No pleural fluid. No pneumothorax. Other findings: None. ABDOMEN AND PELVIS: Bowel: There is a nonspecific bowel gas pattern. There is a paucity of gas seen in the bowel. Small-bowel loop is mildly distended at the left upper quadrant abdomen surgical clips identified in the right hemipelvis. Free air: None. Bones: Unremarkable. Other findings: None. IMPRESSION: Nonspecific small bowel gas pattern. No free intra peritoneal gas collection evident. Further clinical correlation advised. Postop changes right lower quadrant abdomen. No acute cardiopulmonary disease appreciable.
--- NOTE | 2018-07-06 14:20 | CT ---
Date of service: 07/05/2018 PROCEDURE: CT Abdomen and Pelvis with contrast HISTORY: abd pain rlq; h/o appendectomy; h/o duodenal ulcer COMPARISON: Abdomen pelvis CT with contrast 01/06/2018. TECHNIQUE: Following oral and intravenous contrast administration, a CT examination of the abdomen and pelvis performed from the domes of the diaphragms to the symphysis pubis with reformatted datasets provided not only axial but also sagittal and coronal series. Coronal and sagittal reformats were generated. contrast dose: Omnipaque 300, 95 cc Radiation dose: Total exam DLP = 333.34 mGy-cm. This CT exam was performed using one or more of the following dose reduction techniques: Automated exposure control, adjustment of the mA and/or kV according to patient size, and/or use of iterative reconstruction technique. FINDINGS: LOWER THORAX: Unremarkable. LIVER: Unremarkable. No gross lesion or ductal dilatation. GALLBLADDER AND BILE DUCTS: Unremarkable. PANCREAS: Unremarkable. No gross lesion or ductal dilatation. SPLEEN: Unremarkable. ADRENALS: Unremarkable. No mass. KIDNEYS AND URETERS: Unremarkable. No hydronephrosis. No solid mass. VASCULATURE: Unremarkable. No aortic aneurysm. No aortic atherosclerotic calcification or mural plaque present. BOWEL: Postoperative changes are reiterated at the right lower quadrant status post prior appendectomy. No bowel obstruction, mesenteric edema, ascites or free intraperitoneal gas identified. Small large-bowel loops appear grossly nonfocal as imaged. Oral contrast has not yet transit into the colon limiting the evaluation. There also moderate retained fecal material scattered throughout the colon. The stomach is distended with oral contrast material and gas and is unremarkable overall. APPENDIX: Normal appendix. PERITONEUM: See bowel section above. LYMPH NODES: Unremarkable. No enlarged lymph nodes. BLADDER: Unremarkable. REPRODUCTIVE: Unremarkable. BONES: No acute fracture. OTHER FINDINGS: None. IMPRESSION: No definite acute abdominal or pelvic findings as discussed above. Postoperative changes are seen at the base of the cecum status post prior appendectomy once again. Concordant preliminary report from [facility], 07/06/2018.
== END 2018-07-06 01:30 | disposition home or self-care (01) ==
LOC: H.ER 19:46
DX: K29.70 Gastritis, unspecified, without bleeding (principal)
CPT/HCPCS: 74022; 74177; 80053; 80320; 83690; 83735; 85025; 96374; 96375; 96376; 99283; J1885; J2270; J2405; J3475; J7030; Q9966; Q9967

== ENCOUNTER 2019-01-22 08:55 | Emergency (ER) | payer SELFPAY ==
[2019-01-22 09:00] VITALS: BP 117/80; PULSE 76; RESP 17; TEMP 97.1; O2SAT 96; BMI 26.1
[2019-01-22] MEDS ORDERED: Sodium Chloride 0.9% 1,000 ML IV STA ×2 (09:57→12:13)
[2019-01-22 10:49] LABS: BASO # 0.1 K/uL (0.0-0.2); BASO % 0.4 % (0.0-2.0); EOS # 0.1 K/uL (0.0-0.7); EOS % 0.3 % (0.0-4.0); HEMOGLOBIN 14.4 g/dL (12.0-18.0); LYMPH # 2.3 K/uL (1.0-4.3); LYMPH % 13.1 % (20.0-40.0); MEAN CELL VOLUME 94.2 fl (80.0-94.0); MEAN CORPUSCULAR HEMOGLOBIN 31.4 pg (27.0-31.0); MEAN CORPUSCULAR HGB CONC 33.3 g/dL (33.0-37.0); MEAN PLATELET VOLUME 8.3 fl (7.2-11.7); MONO # 0.7 K/uL (0.0-0.8); NEUT # 14.4 K/uL (1.8-7.0); NEUT % 82.2 % (50.0-75.0); RBC 4.58 Mil/uL (4.40-5.90); RED CELL DISTRIBUTION WIDTH 13.5 % (11.5-14.5); WHITE BLOOD COUNT 17.5 K/uL (4.8-10.8)
[2019-01-22 11:03] LABS: ALB/GLOB RATIO 1.7 (1.0-2.1); ALBUMIN 4.5 g/dL (3.5-5.0); ALT/SGPT 25 U/L (21-72); AST/SGOT 31 U/L (17-59); BLOOD UREA NITROGEN 12 mg/dl (9-20); CALCIUM 9.2 mg/dL (8.4-10.2); GFR NON-AFRICAN AMERICAN > 60; LIPASE 73 U/L (23-300)
--- NOTE | 2019-01-22 11:46 | ED PDOC ---
HPI: Abdomen Time Seen by Provider: 01/22/19 09:49 Chief Complaint (Nursing): Abdominal Pain Past Medical History Vital Signs: Last Vital Signs Temp 97.1 F L 01/22/19 08:59 Pulse 76 01/22/19 08:59 Resp 17 01/22/19 08:59 BP 117/80 01/22/19 08:59 Pulse Ox 96 01/22/19 08:59 Primary Care Provider: Non [facility] Provider, - Medical History PMH: Gastritis, Gastrointestinal Ulcer Denies: Chronic Kidney Disease - Surgical History Surgical History: Appendectomy, Endoscopy - Family History Family History: States: Unknown Family Hx - Immunization History Hx Tetanus Toxoid Vaccination: Yes Hx Influenza Vaccination: No Hx Pneumococcal Vaccination: No - Home Medications Home Medications: Ambulatory Orders Medication Instructions Recorded Aluminum Hydroxide/Magnesium H 30 ml PO Q8H PRN #1 bottle 12/31/17 [Maalox 30 ml] Dicyclomine [Bentyl] 20 mg PO BID PRN #30 tab 12/31/17 Pantoprazole [Protonix EC Tab] 40 mg PO ACB #30 ect 12/31/17 Promethazine [Phenergan] 25 mg PO Q12H PRN #10 tab 12/31/17 Pantoprazole Sodium [Protonix] 40 mg PO QAM #20 ect 01/01/18 Pantoprazole Sodium [Protonix] 40 mg PO DAILY #20 tab 01/06/18 Ondansetron ODT [Zofran ODT] 4 mg PO Q8 PRN #10 odt 07/06/18 Pantoprazole Sodium [Protonix] 40 mg PO DAILY #30 ect 07/06/18 Ranitidine HCl [Zantac 75] 75 mg PO BID PRN #14 tablet 07/06/18 - Allergies Allergies/Adverse Reactions: Allergies Allergy/AdvReac Type Severity Reaction Status Date / Time SEAFOOD Allergy RASH Uncoded 07/05/18 20:09 - Laboratory Results Result Diagrams: 01/22/19 10:15 01/22/19 10:15 Lab Results: Total Bilirubin 0.3 mg/dl (0.2-1.3) 01/22/19 10:15 AST 31 U/L (17-59) 01/22/19 10:15 ALT 25 U/L (21-72) 01/22/19 10:15 Alkaline Phosphatase 64 U/L (38-126) 01/22/19 10:15 Total Protein 7.1 G/DL (6.3-8.2) 01/22/19 10:15 Albumin 4.5 g/dL (3.5-5.0) 01/22/19 10:15 Globulin 2.6 gm/dL (2.2-3.9) 01/22/19 10:15 Albumin/Globulin Ratio 1.7 (1.0-2.1) 01/22/19 10:15 Lipase 73 U/L (23-300) 01/22/19 10:15 - ECG O2 Sat by Pulse Oximetry: 96 Medical Decision Making Medical Decision Making: Time: 1421 --CT ABD/pelvis FINDINGS: LOWER THORAX: Unremarkable. LIVER: Unremarkable. No gross lesion or ductal dilatation. GALLBLADDER AND BILE DUCTS: Partially contracted gallbladder. No radiodense cholelithiasis. PANCREAS: Unremarkable. No gross lesion or ductal dilatation. SPLEEN: Unremarkable. ADRENALS: Unremarkable. No mass. KIDNEYS AND URETERS: Unremarkable. No hydronephrosis. No solid mass. VASCULATURE: Unremarkable. No aortic aneurysm. No aortic atherosclerotic calcification or mural plaque present. BOWEL: No bowel obstruction identified. The majority of bowel is collapsed sparing the rectum and limited portion of the distal sigmoid colon. A small lucency at the gastric antrum is appreciated potentially reflecting residual fluid within the generally collapsed stomach. A small ulcer here is not excluded given patient's prior history of duodenal ulcer in the past. Evaluation of the gastrointestinal tract is limited due to the lack of oral contrast administration. APPENDIX: Medial pericecal and cecal surgical clips compatible with prior appendectomy. PERITONEUM: Unremarkable. No free fluid. No free air. LYMPH NODES: Unremarkable. No enlarged lymph nodes. BLADDER: Unremarkable. REPRODUCTIVE: Unremarkable. BONES: Stable bone island S1 posteriorly. OTHER FINDINGS: None. IMPRESSION: 1. No bowel obstruction, measure edema, ascites or free intra peritoneal gas. However, lucency in the stomach is poorly characterized and could reflect limited residual fluid within a generally collapsed stomach. Fluid within ulcer is not excluded either. Consider follow-up upper GI examination or upper endoscopy electively. 2. Prior appendectomy reiterated right lower quadrant. Disposition - Disposition Forms: [employer] ([place])
--- NOTE | 2019-01-22 11:53 | CARD ---
APPROVED REPORT Date of service: 01/22/2019 EKG Measurement Heart [id number] <Conclusion> Normal sinus rhythm with sinus arrhythmia Rightward axis Borderline ECG
[2019-01-22] MEDS ORDERED: Sodium Chloride 0.9% 50 ML IV ONE (13:13)
[2019-01-22] MEDS ORDERED: Iohexol 300 100 ML IJ ONE (13:13)
--- NOTE | 2019-01-22 14:25 | CT ---
Date of service: 01/22/2019 PROCEDURE: CT Abdomen and Pelvis with contrast HISTORY: abdominal pain COMPARISON: Abdomen pelvis CT with contrast 07/05/2018. TECHNIQUE: Following the intravenous administration of iodinated contrast material, a CT examination of the abdomen and pelvis was performed from the domes of the diaphragms to the symphysis pubis with reformatted datasets provided in axial, sagittal and coronal planes. Oral contrast was not administered as per referring physician request. Contrast dose: Omnipaque 300, 95 cc Radiation dose: Total exam DLP = 441.45 mGy-cm. This CT exam was performed using one or more of the following dose reduction techniques: Automated exposure control, adjustment of the mA and/or kV according to patient size, and/or use of iterative reconstruction technique. FINDINGS: LOWER THORAX: Unremarkable. LIVER: Unremarkable. No gross lesion or ductal dilatation. GALLBLADDER AND BILE DUCTS: Partially contracted gallbladder. No radiodense cholelithiasis. PANCREAS: Unremarkable. No gross lesion or ductal dilatation. SPLEEN: Unremarkable. ADRENALS: Unremarkable. No mass. KIDNEYS AND URETERS: Unremarkable. No hydronephrosis. No solid mass. VASCULATURE: Unremarkable. No aortic aneurysm. No aortic atherosclerotic calcification or mural plaque present. BOWEL: No bowel obstruction identified. The majority of bowel is collapsed sparing the rectum and limited portion of the distal sigmoid colon. A small lucency at the gastric antrum is appreciated potentially reflecting residual fluid within the generally collapsed stomach. A small ulcer here is not excluded given patient's prior history of duodenal ulcer in the past. Evaluation of the gastrointestinal tract is limited due to the lack of oral contrast administration. APPENDIX: Medial pericecal and cecal surgical clips compatible with prior appendectomy. PERITONEUM: Unremarkable. No free fluid. No free air. LYMPH NODES: Unremarkable. No enlarged lymph nodes. BLADDER: Unremarkable. REPRODUCTIVE: Unremarkable. BONES: Stable bone island S1 posteriorly. OTHER FINDINGS: None. IMPRESSION: 1. No bowel obstruction, measure edema, ascites or free intra peritoneal gas. However, lucency in the stomach is poorly characterized and could reflect limited residual fluid within a generally collapsed stomach. Fluid within ulcer is not excluded either. Consider follow-up upper GI examination or upper endoscopy electively. 2. Prior appendectomy reiterated right lower quadrant.
== END 2019-01-22 14:49 | disposition home or self-care (01) ==
LOC: H.ER 08:55
DX: Z90.49 Acquired absence of other specified parts of digestive tract (principal)
CPT/HCPCS: 74177; 80053; 83690; 85025; 93005; 96372; 96374; 96375; 99283; J1630; J1885; J2060; J2405; J7030; Q9967